=== PATIENT | male | born 1960 | race Caucasian/White ===

== ENCOUNTER 2019-07-01 17:45 | Emergency (ER) | payer OTHER ==
[~2019-07-01] VITALS: Ht 185.4 cm; Wt 99.8 kg
--- OUTSIDE RECORDS SUMMARY | ~2019-07-01 | XMS | Encounter Summary ---
Demographics + + + | Address | [address] | | | [place] [address] | + + + | Home Phone | | + + + | Preferred Language | Unknown | + + + | Marital Status | | + + + | Lutheran Affiliation | Unknown | + + + | Race | Unknown | + + + | Ethnic Group | Unknown | + + + Author + + + | Author | and [facility] | | | and [place] | + + + | Organization | and [facility] | | | and [place] | + + + | Address | Unknown | + + + | Phone | Unavailable | + + + Support + + +---------+ + | Name | Relationship | Address | Phone | + + +---------+ + | Kalli So | ECON | Unknown | | + + +---------+ + Care Team Providers + +------+ + | Care Distribution Center Administrator Name | Role | Phone | + +------+ + | Ihsan Umaña MD | PCP | | + +------+ + Reason for Visit +---------+ + | Reason | Comments | +---------+ + | Results | | +---------+ + Encounter Details +--------+ + + + + | Date | Type | Department | Care Team | Description | +--------+ + + + + | 06/06/ | Telephone | [facility] | Cesar Morelos | Results | | 2019 | | GASTROENTEROLOGY | MD Allie [address] | | | | | [address] | [address] | | | | | [place], [place] | [place] [address] | | | | | [address] | [phone] | | | | | [phone] | | | +--------+ + + + + Social History + + + +--------+ + | Tobacco Use | Types | Packs/Day | Years | Date | | | | | Used | | + + + +--------+ + | Current Every Day | Cigarettes | 1 | 23 | Started: 05/08/1996 | | Smoker | | | | | + + + +--------+ + + +---+---+---+ | Smokeless Tobacco: | | | | | Never Used | | | | + +---+---+---+ + + +---------+ + | Alcohol Use | Drinks/Week | oz/Week | Comments | + + +---------+ + | Yes | | | 30bears week + 2 | | | | | shots of liqure | | | | | nightly. | + + +---------+ + + + + | Sex Assigned at | Date Recorded | | | | + + + | Not on file | | + + + + + + + | Job Start Date | Occupation | Industry | + + + + | Not on file | Not on file | Not on file | + + + + + + + + | Travel History | Travel Start | Travel End | + + + + + + | No recent travel history available. | + + documented as of this encounter Plan of Treatment Not on filedocumented as of this encounter Visit Diagnoses Not on filedocumented in this encounter"
--- OUTSIDE RECORDS SUMMARY | ~2019-07-01 | XMS | Encounter Summary ---
Demographics + + + | Address | [address] | | | [place] [address] | + + + | Home Phone | | + + + | Preferred Language | Unknown | + + + | Marital Status | | + + + | Restorationist Affiliation | Unknown | + + + | Race | Unknown | + + + | Ethnic Group | Unknown | + + + Author + + + | Author | [facility] | | | and [place] | + + + | Organization | [facility] | | | and [place] | [...] Team Providers + +------+ + | Care Prepared Foods Service Team Member Name | Role | Phone | + +------+ + | Ihsan Umaña MD | PCP | | + +------+ + Reason for Visit + + + | Reason | Comments | + + + | Musculoskeletal Pain | | + + + Encounter Details +--------+ + + + + | Date | Type | Department | Care Team | Description | +--------+ + + + + | 05/26/ | Telephone | [facility] | Gladis Melo | Musculoskeletal Pain | | 2019 | | [address]SIATRY [address] | ARYA [address] | | | | | [place], | [employer] [facility] | | | | | [place] [address] | [address] [place], [place] | | | | | [phone] | [address] | | | | | | | | +--------+ + + + [...]
--- OUTSIDE RECORDS SUMMARY | ~2019-07-01 | XMS | Encounter Summary ---
Demographics + + + | Address | [address] | | | [place] [address] | + + + | Home Phone | | + + + | Preferred Language | Unknown | + + + | Marital Status | | + + + | Pentecostalism Affiliation | Unknown | + + + | Race | Unknown | + + + | Ethnic Group | Unknown | + + + Author + + + | Author | [facility] | | | and [place] | + + + | Organization | [facility] | | | and [place] [...] Team Providers + +------+ + | Care Tax Professional Name | Role | Phone | + +------+ + | Ihsan Umaña MD | PCP | | + +------+ + Reason for Visit +--------+ + | Reason | Comments | +--------+ + | Other | | +--------+ + Encounter Details +--------+ + + + + | Date | Type | Department | Care Team | Description | +--------+ + + + + | 05/19/ | Telephone | [facility] | Gladis Melo | Other | | 2019 | | [address]ATRY [address] | ARYA [address] | | | | | [place], | [place] [facility] | | | | | [place] [address] | [address], [place] | | | | | [phone] | [address] | | | | | | | [...] +---------+ + | Yes | | | Fairly Heavy | + + +---------+ + + + [...]
--- OUTSIDE RECORDS SUMMARY | ~2019-07-01 | XMS | Encounter Summary ---
Demographics + + + | Address | [address] | | | [place] [address] | + + + | Home Phone | | + + + | Preferred Language | Unknown | + + + | Marital Status | | + + + | Anglican Affiliation | Unknown | + + + | Race | Unknown | + + + | Ethnic Group | Unknown | + + + Author + + + | Author | [facility] | | | and [place] | + + + | Organization | [facility] | | | and [place] [...] Team Providers + +------+ + | Care Stock Preparer Name | Role | Phone | + +------+ + | Ihsan Umaña MD | PCP | | + +------+ + Encounter Details +--------+ + + + + | Date | Type | Department | Care Team | Description | +--------+ + + + + | 06/30/ | Imaging | [facility] | Provider, | | | 2019 | Exam | [facility] | MD [address] | | | | | IMAGING | [address] | | | | | [phone] | [place] [address] | | +--------+ + + + + [...] Not on filedocumented as of this encounter Procedures + +--------+ + + + | Procedure Name | Priori | Date/Time | Associated Diagnosis | Comments | | | ty | | | | + +--------+ + + + | MRI LUMBAR SPINE WO | Routin | 06/20/2019 | | Results for this | | CONTRAST | e | 12:00 AM | | procedure are in the | | | | PST | | results section. | + +--------+ + + + documented in this encounter Results MRI Lumbar Spine wo Contrast (06/20/2019 12:00 AM PST) + + | Specimen | + + | | + + + + + | Narrative | Performed At | + + + | External films for comparison only | [facility] | | | | | No results will be in the chart. | | + + + + +---------+ + + | Performing | Address | City/State/Zipcode | Phone Number | | Organization | | | | + +---------+ + + | [facility] | | | | + +---------+ + + documented in this encounter Visit Diagnoses Not on filedocumented in this encounter"
--- OUTSIDE RECORDS SUMMARY | ~2019-07-01 | XMS | Encounter Summary ---
Demographics + + + | Address | [address] | | | [place] [address] | + + + | Home Phone | | + + + | Preferred Language | Unknown | + + + | Marital Status | | + + + | Zoroastrian Affiliation | Unknown | + + + | Race | Unknown | + + + | Ethnic Group | Unknown | + + + Author + + + | Author | [facility] | | | and [place] | + + + | Organization | [facility] | | | and [place] | [...] Team Providers + +------+ + | Care Disc Pad Plate Filler Name | Role | Phone | + +------+ + | Ihsan Umaña MD | PCP | | + +------+ + Reason for Visit +--------+ + | Reason | Comments | +--------+ + | Other | pre-procedure call | +--------+ + Encounter Details +--------+ + + + + | Date | Type | Department | Care Team | Description | +--------+ + + + + | 05/28/ | Telephone | [facility] | Cesar Morelos | Other (pre-procedure | | 2019 | | GASTROENTEROLOGY | MD Bernadette Kelley | call ) | | | | [address] | [address] | | | | | [place], [place] | [place] [address] | | | | | [address] | [phone] | | | | | [phone] | | | +--------+ + + + [...]
--- OUTSIDE RECORDS SUMMARY | ~2019-07-01 | XMS | Encounter Summary ---
Demographics + + + | Address | [address] | | | [place] [address] | + + + | Home Phone | | + + + | Preferred Language | Unknown | + + + | Marital Status | | + + + | Buddhist Affiliation | Unknown | + + + | Race | Unknown | + + + | Ethnic Group | Unknown | + + + Author + + + | Author | [facility] | | | and [place] | + + + | Organization | [facility] | | | and [place] [...] Team Providers + +------+ + | Care Underwriting Consultant Name | Role | Phone | + +------+ + | Ihsan Umaña MD | PCP | | + +------+ + Reason for Visit Auth/Cert +--------+--------+ + + + + | Status | Reason | Specialty | Diagnoses / | Referred By | Referred To | | | | | Procedures | Contact | Contact | +--------+--------+ + + + + | | | | | | | +--------+--------+ + + + + Encounter Details +--------+ + + + + | Date | Type | Department | Care Team | Description | +--------+ + + + + | 05/26/ | Preadmit | [facility] | Cesar Morelos | | | 2019 | Visit | [facility] | MD [address] | | | | | CLINIC [address] | [address] | | | | | [place], [place] | [place] [address] | | | | | [address] | [phone] | | | | | [phone] | | | +--------+ + + + [...] | | | + +---+---+---+ + + | Tobacco Cessation: Counseling Given: Yes | + + + + +---------+ + | Alcohol Use [...] + + documented as of this encounter Last Filed Vital Signs + + + + + | Vital Sign | Reading | Time Taken | Comments | + + + + + | Blood Pressure | 180/88 | 05/26/2019 12:02 PM | | | | | PDT | | + + + + + | Pulse | 93 | 05/26/2019 12:02 PM | | | | | PDT | | + + + + + | Temperature | - | - | | + + + + + | Respiratory Rate | - | - | | + + + + + | Oxygen Saturation | 98% | 05/26/2019 12:02 PM | | | | | PDT | | + + + + + | Inhaled Oxygen | - | - | | | Concentration | | | | + + + + + | Weight | 102 kg (224 lb 13.9 | 05/26/2019 12:02 PM | | | | oz) | PDT | | + + + + + | Height | 185.4 cm (6' 1") | 05/26/2019 12:02 PM | | | | | PDT | | + + + + + | Body Mass Index | 29.67 | 05/26/2019 12:02 PM | | | | | PDT | | + + + + + documented in this encounter Plan of Treatment Not on filedocumented as of this encounter Procedures + +--------+ + + + | Procedure Name | Priori | Date/Time | Associated Diagnosis | Comments | | | ty | | | | + +--------+ + + + | HEMOGLOBIN AND | Timed | 05/26/2019 | | Results for this | | HEMATOCRIT | | 12:28 PM | | procedure are in the | | | | PDT | | results section. | + +--------+ + + + | BASIC METABOLIC | Timed | 05/26/2019 | | Results for this | | PANEL | | 12:28 PM | | procedure are in the | | | | PDT | | results section. | + +--------+ + + + documented in this encounter Results Basic Metabolic Panel (05/26/2019 12:28 PM PDT) + + + + + + | Component | Value | Ref Range | Performed | Pathologist | | | | | At | Signature | + + + + + + | Na | 139 | 135 - 145 | [facility] | | | | | mmol/L | LABORATORY | | + + + + + + | K | 4.4 | 3.5 - 4.9 | [facility] | | | | | mmol/L | LABORATORY | | + + + + + + | Cl | 106 | 99 - 109 mmol/L | [facility] | | | | | | LABORATORY | | + + + + + + | CO2 | 29 | 23 - 32 mmol/L | [facility] | | | | | | LABORATORY | | + + + + + + | Anion Gap | 8 | 5 - 20 mmol/L | [facility] | | | | | | LABORATORY | | + + + + + + | Glucose | 61 (L) | 65 - 99 mg/dL | [facility] | | | | | | LABORATORY | | + + + + + + | BUN | 21 | 8 - 25 mg/dL | [facility] | | | | | | LABORATORY | | + + + + + + | Creatinine | 1.6 (H) | 0.70 - 1.30 | [facility] | | | | | mg/dL | LABORATORY | | + + + + + + | BUN/Creatin | 13 | | [facility] | | | ine Ratio | | | LABORATORY | | + + + + + + | Calcium | 9.4 | 8.5 - 10.5 | [facility] | | | | | mg/dL | LABORATORY | | + + + + + + | Estimated | 45 (L)Comment: GFR <60: | >60 | [facility] | | | GFR | CHRONIC KIDNEY DISEASE, | mL/min/1.73m2 | LABORATORY | | | | IF FOUND OVER A 3 MONTH | | | | | | PERIOD.GFR <15: KIDNEY | | | | | | FAILURE.FOR | | | | | | AMERICANS, MULTIPLY THE | | | | | | CALCULATED GFR BY | | | | | | 1.210.This eGFR is | | | | | | calculated using the | | | | | | MDRD IDMS traceable | | | | | | equation.Testing | | | | | | performed at [facility], [address] | | | | | | [address], | | | | | | [place] [address] | | | | + + + + + + + + | Specimen | + + | Blood | + + + + + + + | Performing | Address | City/State/Zipcode | Phone Number | | Organization | | | | + + + + + | [facility] | [address] | [place] [address] | [phone] | + + + + + Hemoglobin and Hematocrit (05/26/2019 12:28 PM PDT) + + + + + + | Component | Value | Ref Range | Performed | Pathologist | | | | | At | Signature | + + + + + + | Hemoglobin | 15.9 | 13.2 - 17.0 | [facility] | | | | | g/dL | LABORATORY | | + + + + + + | Hematocrit | 44.5Comment: Testing | 39.0 - 50.0 % | [facility] | | | | performed at [facility], [address] | | LABORATORY | | | | [address], | | | | | | [place] [address] | | | | + + + + + + + + | Specimen | + + | Blood | + + + + + + + | Performing | Address | City/State/Zipcode | Phone Number | | Organization | | | | + + + + + | [facility] | [address] | [place] [address] | [phone] | + + + + + documented in this encounter Visit Diagnoses Not on filedocumented in this encounter
--- OUTSIDE RECORDS SUMMARY | ~2019-07-01 | XMS | Clinical Summary ---
Demographics + + + | Address | [address] | | | [place] [address] | + + + | Home Phone | | + + + | Preferred Language | Unknown | + + + | Marital Status | | + + + | Oriental Orthodox Affiliation | Unknown | + + + | Race | Unknown | + + + | Ethnic Group | Unknown | + + + Author + + + | Author | [facility] | | | and [place] | + + + | Organization | [facility] | | | and [place] [...] Team Providers + +------+ + | Care Precision Assembler Bench Name | Role | Phone | + +------+ + | Ihsan Umaña MD | PCP | | + +------+ + Allergies No Known Allergies Medications + + + +---------+------+------+-------+ | Medication | Sig | Dispensed | Refills | Star | End | Statu | | | | | | t | Date | s | | | | | | Date | | | + + + +---------+------+------+-------+ | cetirizine | Take 10 mg by mouth | | 0 | 03/2 | 03/2 | Activ | | (ZYRTEC) 10 mg | Daily as needed for | | | 01/16 | 20 | e | | tablet | Allergies. | | | 19 | 20 | | + + + +---------+------+------+-------+ | cholecalciferol | Take 1 tablet by | | 0 | 03/2 | 03/2 | Activ | | (VITAMIN D-3) 2,000 | mouth Daily. | | | 01/16 | 01/16 | e | | units capsule | | | | 19 | 20 | | + + + +---------+------+------+-------+ | DULoxetine | Take 1 capsule by | | 0 | 03/2 | 03/2 | Activ | | (CYMBALTA) [address] | mouth Daily. | | | 01/16 | 01/16 | e | | capsule | | | | 19 | 20 | | + + + +---------+------+------+-------+ | gabapentin | Take 300 mg by mouth | | 0 | 10/28 | 10/28 | Activ | | (NEURONTIN) 300 mg | 3 times daily. | | | 12/16 | 12/16 | e | | capsule | | | | 19 | 20 | | + + + +---------+------+------+-------+ | ACIDOPHILUS | Take 1 capsule by | | 0 | 06/2 | 06/2 | Activ | | LACTOBACILLUS PO | mouth 4 times daily | | | 0/20 | 0/20 | e | | | (with meals and | | | 19 | 20 | | | | nightly). | | | | | | + + + +---------+------+------+-------+ | loperamide | Take 1 capsule by | | 0 | 06/2 | 06/2 | Activ | | (IMODIUM) 2 mg | mouth as needed for | | | 0/20 | 0/20 | e | | capsule | Diarrhea. Take after | | | 19 | 20 | | | | each loose stool. | | | | | | | | No more than 8 | | | | | | | | capsules daily. | | | | | | + + + +---------+------+------+-------+ | mupirocin | 1 Application by | | 0 | 01/0 | 01/0 | Activ | | (BACTROBAN) 2% | Nasal route 3 times | | | 8/20 | 9/20 | e | | ointment | daily as needed. In | | | 19 | 20 | | | | left nostril for | | | | | | | | infection | | | | | | + + + +---------+------+------+-------+ | omeprazole | Take 20 mg by mouth | | 0 | 09/0 | 0 | Activ | | (PRILOSEC) 20 mg | every morning | | | 04/18 | 04/18 | e | | capsule | (before breakfast). | | | 19 | 20 | | + + + +---------+------+------+-------+ Active Problems + + + | Problem | Noted Date | + + + | Alcoholism | 05/09/2019 | + + + | Anxiety | 05/09/2019 | + + + | Clear cell carcinoma of left kidney | 05/09/2019 | + + + | Clostridium difficile colitis | 05/09/2019 | + + + | Complex posttraumatic stress disorder | 05/09/2019 | + + + | Depressive disorder | 05/09/2019 | + + + | H/O: attempted suicide | 05/09/2019 | + + + | Ingrowing toenail | 05/09/2019 | + + + | Insomnia | 05/09/2019 | + + + | Pain in right knee | 05/09/2019 | + + + | Radiculopathy due to lumbar intervertebral disc disorder | 05/09/2019 | + + + | Suicidal thoughts | 05/09/2019 | + + + | Tobacco user | 05/09/2019 | + + + | History of Clostridium difficile infection | 04/07/2019 | + + + + + | Overview: Added automatically from request for surgery | | [id number] | + + + + + | Change in consistency of stool | 04/07/2019 | + + + + + | Overview: Added automatically from request for surgery | | [id number] | + + + + + | Gastroesophageal reflux disease, esophagitis presence not | 04/07/2019 | | specified | | + + + + + | Overview: Added automatically from request for surgery | | [id number] | + + + + + | Positive occult stool blood test | 04/07/2019 | + + + + + | Overview: Added automatically from request for surgery | | [id number] | + + + + + | Heartburn | 04/07/2019 | + + + + + | Overview: Added automatically from request for surgery | | [id number] | + + + + + | Weight loss | 04/07/2019 | + + + + + | Overview: Added automatically from request for surgery | | [id number] | + + + + + | Left lower quadrant pain | 12/02/2018 | + + + | BPH with obstruction/lower urinary tract symptoms | 08/19/2018 | + + + | Nocturia | 08/19/2018 | + + + | Renal cancer, left | 08/19/2018 | + + + | Renal mass, left | 08/07/2018 | + + + | Night sweats | 07/18/2018 | + + + + + | Overview: Last Assessment & Plan: Denies fever, fatigue, | | weight loss, itching, or shortness of breath. +smoker. CXR on | | 07/08/18 done at the [place] was negative. Possibly SE of his | | antidepressant medication, duloxetine 60mg. Labs ordered for | | further evaluation. If labs wnl, consider discussing medication | | options with mental health provider. | + + + + + | Nasal mass | 07/11/2018 | + + + | Lumbar spondylolysis | 06/18/2018 | + + + | Facet arthritis of lumbar region | 05/21/2018 | + + + | Sacroiliitis | 05/21/2018 | + + + | Hypercholesteremia | 02/28/2018 | + + + | Hypertension | 02/28/2018 | + + + | Open displaced fracture of right great toe | 02/28/2018 | + + + | Other intervertebral disc displacement, lumbar region | 02/28/2018 | + + + | Pain of right great toe | 02/28/2018 | + + + | NATIVIDAD (obstructive sleep apnea) | 05/30/2017 | + + + | Post-operative complication | 2016 | + + + | Lumbago with sciatica | 03/25/2013 | + + + Encounters +--------+ + + + + | Date | Type | Specialty | Care Team | Description | +--------+ + + + + | 06/30/ | Imaging | Radiology | Provider, | | | 2019 | Exam | | MD Rozina | | +--------+ + + + + | 06/25/ | Telephone | Physical Medicine | Gladis Melo | Imaging | | 2018 | | and Rehabilitation | ARYA Olivares | | +--------+ + + + + | 06/06/ | Telephone | Gastroenterology | Cesar Morelos | Results | 2018 | | | MD Allie | | +--------+ + + + + | 06/02/ | Surgery | | Cesar Morelos | COLONOSCOPY W/ EGD | 2018 | | | MD Allie | | +--------+ + + + + | 06/02/ | Anesthesia | | Carrie Saldana, | | | 2018 | Event | | FLAKITA Beal | | +--------+ + + + + | 06/02/ | Hospital | | Cesar Morelos | History of | | 2018 | Encounter | | MD Allie | Clostridium | | | | | | difficile infection; | | | | | | Change in | | | | | | consistency of | | | | | | stool; | | | | | | Gastroesophageal | | | | | | reflux disease, | | | | | | esophagitis presence | | | | | | not specified; | | | | | | Positive occult | | | | | | stool blood test; | | | | | | Heartburn; Weight | | | | | | loss; History of | | | | | | Clostridium | | | | | | difficile infection; | | | | | | Change in | | | | | | consistency of | | | | | | stool; | | | | | | Gastroesophageal | | | | | | reflux disease, | | | | | | esophagitis presence | | | | | | not specified; | | | | | | Positive occult | | | | | | stool blood test; | | | | | | Heartburn; Weight | | | | | | loss | +--------+ + + + + | 05/28/ | Telephone | Gastroenterology | eCsar Morelos | Other (pre-procedure | | 2018 | | | MD Allie | call ) | +--------+ + + + + | 05/27/ | Telephone | Physical Medicine | Gladis Melo | Records Request | | 2018 | | and Rehabilitation | ARYA Olivares | | +--------+ + + + + | 05/26/ | Preadmit | Pre-Admission | Cesar Morelos | | | 2018 | Visit | Testing | MD Allie | | +--------+ + + + + | 05/26/ | Telephone | Physical Medicine | Gladis Melo | Musculoskeletal Pain | | 2018 | | and Rehabilitation | ARYA Olivares | | +--------+ + + + + | 05/19/ | Telephone | Physical Medicine | Gladis Melo | Other | | 2018 | | and Rehabilitation | ARYA Olivares | | +--------+ + + + + | 05/09/ | Office | Physical Medicine | Gladis Melo | Lumbar spondylosis | | 2018 | Visit | and Rehabilitation | ARYA Olivares | (Primary Dx); | | | | | | History of lumbar | | | | | | discectomy; Chronic | | | | | | bilateral low back | | | | | | pain, unspecified | | | | | | whether sciatica | | | | | | present; | | | | | | Spondylolisthesis at | | | | | | L5-S1 level | +--------+ + + + + | 05/08/ | Abstract | Physical Medicine | Provider, | | | 2019 | | and Rehabilitation | MD Rozina | | +--------+ + + + + | 04/15/ | Telephone | Gastroenterology | Christie Red | Results (Lab work ) | | 2019 | | | Transfer Driver | | +--------+ + + + + | 04/08/ | Orders Only | | Yaima Sotelo | Change in | | 2019 | | | Y Debt Recovery Officer | consistency of | | | | | | stool; Heartburn; | | | | | | Gastroesophageal | | | | | | reflux disease, | | | | | | esophagitis presence | | | | | | not specified; | | | | | | History of | | | | | | Clostridium | | | | | | difficile infection | +--------+ + + + + | 04/07/ | Office | Gastroenterology | Jacqueline | History of | | 2019 | Visit | | KANE Wheeler | Clostridium | | | | | | difficile infection | | | | | | (Primary Dx); Change | | | | | | in consistency of | | | | | | stool; Weight loss; | | | | | | Heartburn; | | | | | | Gastroesophageal | | | | | | reflux disease, | | | | | | esophagitis presence | | | | | | not specified; | | | | | | Positive occult | | | | | | stool blood test | +--------+ + + + + | 04/07/ | Orders Only | | Gretchen Montano | Change in | | 2018 | | | Mike Debt Recovery Officer | consistency of stool | +--------+ + + + + from Last 3 Months Immunizations + + + + | Name | Administration Dates | Next Due | + + + + | INFLUENZA QUADR | 05/21/2019 | | | W/PRES | | | | (PED/ADOL/ADULT) | | | | MULTIDOSE | | | + + + + | INFLUENZA TRIV | 05/13/2018 | | | W/PRES(PED/ADOL/ADUL | | | | T),MULTIDOSE | | | + + + + | PNEUMOCOCCAL | 11/11/2018 | | | POLYSACCHARIDE | | | | 23-VALENT (PPSV23) | | | + + + + | TDAP, (ADOL/ADULT) | 04/29/2017 | | + + + + Family History + + +------+ + | Medical History | Relation | Name | Comments | + + +------+ + | Heart disease | Brother | | | + + +------+ + | Kidney cancer | Brother | | | + + +------+ + | Depression | Brother | | | + + +------+ + | Mental illness | Brother | | | + + +------+ + | Suicide | Brother | | | + + +------+ + | Alcohol abuse | Father | | | + + +------+ + | Arthritis | Father | | | + + +------+ + | Cancer | Father | | | + + +------+ + | Heart attack | Father | | | + + +------+ + | Hypertension | Father | | | + + +------+ + | Stroke | Father | | | + + +------+ + | Arthritis | Mother | | | + + +------+ + | Asthma | Mother | | | + + +------+ + | Heart disease | Mother | | | + + +------+ + | High blood pressure | Mother | | | + + +------+ + | Hypertension | Mother | | | + + +------+ + | Osteoarthritis | Mother | | | + + +------+ + | Parkinsonism | Mother | | | + + +------+ + | Lupus | Other | | | + + +------+ + | No known problems | Other | | | + + +------+ + | No known problems | Sister | | | + + +------+ + | Colon cancer | Neg Hx | | | + + +------+ + | Colon polyps | Neg Hx | | | + + +------+ + | Crohn's disease | Neg Hx | | | + + +------+ + + +------+ + + | Relation | Name | Status | Comments | + +------+ + + | Brother | | Alive | | + +------+ + + | Brother | | | | + +------+ + + | Father | | | Cancer | | | | (Age | | | | | 62) | | + +------+ + + | Mother | | | | | | | (Age | | | | | 89) | | + +------+ + + | Other | | Alive | sibling | + +------+ + + | Other | | Alive | Sibling | + +------+ + + | Sister | | Alive | | + +------+ + + Social History + + + [...] recent travel history available. | + + Last Filed Vital Signs + + + + + | Vital Sign | Reading | Time Taken | Comments | + + + + + | Blood Pressure | 103/67 | 06/02/2019 8:14 AM | | | | | PST | | + + + + + | Pulse | 74 | 06/02/2019 8:14 AM | | | | | PST | | + + + + + | Temperature | 36.5 C (97.7 F) | 06/02/2019 8:14 AM | | | | | PST | | + + + + + | Respiratory Rate | 16 | 06/02/2019 8:14 AM | | | | | PST | | + + + + + | Oxygen Saturation | 100% | 06/02/2019 8:14 AM | | | | | PST | | + + + + + | Inhaled Oxygen | - | - | | | Concentration | | | | + + + + + | Weight | 101 kg (222 lb 10.6 | 06/02/2019 7:01 AM | | | | oz) | PST | | + + + + + | Height | 185.4 cm (6' 1") | 06/02/2019 7:01 AM | | | | | PST | | + + + + + | Body Mass Index | 29.38 | 06/02/2019 7:01 AM | | | | | PST | | + + + + + Plan of Treatment + + + + + | Health Maintenance | Due Date | Last Done | Comments | + + + + + | Hepatitis C | | | | | Screening | 3 | | | + + + + + | Vaccine: Zoster (1 | | | | | of 2) | 3 | | | + + + + + | Vaccine: | | 11/11/2018 | | | Pneumococcal 19-64 | 0 | | | | (2 of 3 - PCV13) | | | | + + + + + | Vaccine: | | 04/29/2017 | | | Dtap/Tdap/Td (2 - | 7 | | | | Td) | | | | + + + + + | Colorectal Cancer | | 06/02/2019 | | | Screening | 9 | | | | (Colonoscopy) | | | | + + + + + | Vaccine: Influenza | Completed | 05/21/2019, 05/13/2018 | | + + + + + Procedures + +--------+ + + + | [...] | + +--------+ + + + | COLONOSCOPY | Routin | 06/02/2019 | | Results for this | | | e | 7:41 AM | | procedure are in the | | | | PST | | results section. | + +--------+ + + + | SURGICAL PATHOLOGY | Routin | 06/02/2019 | History of | Results for this | | EXAM | e | 7:36 AM | Clostridium | procedure are in the | | | | PST | difficile infection | results section. | | | | | Change in | | | | | | consistency of stool | | | | | | Gastroesophageal | | | | | | reflux disease, | | | | | | esophagitis presence | | | | | | not specified | | | | | | Positive occult | | | | | | stool blood test | | | | | | Heartburn Weight | | | | | | loss | | + +--------+ + + + | EGD | Routin | 06/02/2019 | | Results for this | | | e | 7:27 AM | | procedure are in the | | | | PST | | results section. | + +--------+ + + + | COLONOSCOPY W/ EGD | | 06/02/2019 | History of | | | | | 7:20 AM | Clostridium | | | | | PST | difficile infection | | | | | | Change in | | | | | | consistency of stool | | | | | | Gastroesophageal | | | | | | reflux disease, | | | | | | esophagitis presence | | | | | | not specified | | | | | | Positive occult | | | | | | stool blood test | | | | | | Heartburn Weight | | | | | | loss | | + +--------+ + + + +---+--------+ | | | | | Specia | | | l | | | Needs | | | with | | | Anesth | | | sohail | +---+--------+ + +--------+ + + + | BASIC [...] | + +--------+ + + + | FECAL LEUKOCYTES | CARLOS | 04/08/2019 | Change in | Results for this | | | | 7:25 AM | consistency of stool | procedure are in the | | | | PDT | | results section. | + +--------+ + + + | CLOSTRIDIUM | Routin | 04/08/2019 | History of | Results for this | | DIFFICILE A AND B | e | 7:25 AM | Clostridium | procedure are in the | | EIA | | PDT | difficile infection | results section. | + +--------+ + + + | HELICOBACTER PYLORI | Routin | 04/08/2019 | Heartburn | Results for this | | AG, EIA, STOOL | e | 7:25 AM | Gastroesophageal | procedure are in the | | | | PDT | reflux disease, | results section. | | | | | esophagitis presence | | | | | | not specified | | + +--------+ + + + | CULTURE, STOOL | Routin | 04/08/2019 | Change in | Results for this | | | e | 7:25 AM | consistency of stool | procedure are in the | | | | PDT | | results section. | + +--------+ + + + | CBC WITH MANUAL | Routin | 04/07/2019 | Change in | Results for this | | DIFFERENTIAL | e | 10:01 AM | consistency of stool | procedure are in the | | | | PDT | | results section. | + +--------+ + + + | COMPREHENSIVE | Routin | 04/07/2019 | Change in | Results for this | | METABOLIC PANEL | e | 10:01 AM | consistency of stool | procedure are in the | | | | PDT | | results section. | + +--------+ + + + | SEDIMENTATION RATE | Routin | 04/07/2019 | Change in | Results for this | | | e | 10:01 AM | consistency of stool | procedure are in the | | | | PDT | | results section. | + +--------+ + + + | CELIAC PANEL, | Routin | 04/07/2019 | Change in | Results for this | | SEROLOGY | e | 10:01 AM | consistency of stool | procedure are in the | | | | PDT | | results section. | + +--------+ + + + | C-REACTIVE PROTEIN | Routin | 04/07/2019 | Change in | Results for this | | | e | 10:01 AM | consistency of stool | procedure are in the | | | | PDT | | results section. | + +--------+ + + + from Last 3 Months Results MRI Lumbar Spine wo Contrast (06/20/2019 [...] | | | + +---------+ + + COLONOSCOPY (06/02/2019 7:41 AM PST) + + | Specimen | + + | | + + + + + | Narrative | Performed At | + + + | [facility] | [place] | | [facility] | [place] | | CenterGI | | | Patient Name: Antonio Simpson Procedure | | | Date: 06/02/2019 7:41 AMMRN: [id number] | | | of : 1960 | | | Note Status: FinalizedAttending MD: Cesar Morelos , | | | Instrument Name: [id number] | | | Colonoscope | | | Procedure Type: ColonoscopyIndications: | | | Heme positive stool, Weight lossMedicines: | | | Monitored Anesthesia CareComplications: No immediate | | | complications. | | | Procedure: Pre-Anesthesia Assessment: | | | - Prior to the procedure, a History and Physical was performed, and | | | patient medications and allergies were reviewed. The patient's | | | tolerance of previous anesthesia was also reviewed. The risks | | | and benefits of the procedure and the sedation options and | | | risks were discussed with the patient. All questions were | | | answered, and informed consent was obtained. Prior | | | Anticoagulants: The patient has taken no previous anticoagulant or | | | antiplatelet agents. ASA Grade Assessment: III - A patient with | | | severe systemic disease. After reviewing the risks and | | | benefits, the patient was deemed in satisfactory condition to | | | undergo the procedure. After I obtained informed consent, the | | | scope was passed under direct vision. Throughout the procedure, | | | the patient's blood pressure, pulse, and oxygen saturations | | | were monitored continuously. The Colonoscope was introduced | | | through the anus and advanced to 10 cm into the ileum. The | | | colonoscopy was performed without difficulty. The patient tolerated | | | the procedure well. The quality of the bowel preparation was | | | good. The terminal ileum, ileocecal valve, appendiceal orifice, | | | and rectum were photographed. | | | | | | Estimated Blood Loss: Estimated blood loss: none.Scope | | | Withdrawal Time 0 hours 9 minutes 49 seconds Findings: The | | | digital rectal exam was normal. The terminal ileum appeared | | | normal. A few small-mouthed diverticula were found in the | | | sigmoid colon. Internal hemorrhoids were found. The hemorrhoids | | | were small. The exam was otherwise without abnormality on direct | | | and retroflexion views. | | | | | | Impression: - The examined portion of the ileum was | | | normal. - Diverticulosis in the sigmoid colon. - Internal | | | hemorrhoids. - The examination was otherwise normal on direct | | | and retroflexion views. - No specimens collected. | | | | | | Recommendation: - Patient has a | | | contact number available for emergencies. The signs and | | | symptoms of potential delayed complications were discussed with the | | | patient. Return to normal activities tomorrow. Written discharge | | | instructions were provided to the patient. - Resume | | | previous diet. - Continue present medications. - Repeat | | | colonoscopy in 10 years for screening purposes. - Return to GI | | | clinic. | | | | | | Kaylynsalbador Allie Morelos, 06/02/2019 7:59:50 AMThis | | | report has been signed electronically. Note Initiated On: 06/02/2019 | | | 7:41 AMNumber of Addenda: 0 [facility] | | | Endoscopy Services | | | | | | | | | | | |Cesar Morelos, | | |06/02/2019 7:59:50 AM | | |This report has been signed electronically. | | | | | |Note Initiated On: 06/02/2019 7:41 AM | | |Number of Addenda: 0 | | | | | | [facility] | | + + + + +---------+ + + | Performing | Address | City/State/Zipcode | Phone Number | | Organization | | | | + +---------+ + + | [facility] | | | | + +---------+ + + Surgical Pathology Exam (06/02/2019 7:36 AM PST) + + | Specimen | + + | Tissue - Duodenal | | biopsy sample | | (specimen) | + + | Soft tissue sample | | (specimen) - | | Specimen from | | stomach (specimen) | + + + + + | Narrative | Performed At | + + + | SPECIMEN(S): A | [facility] | | DUODENAL BIOPSYSPECIMEN(S): B GASTRIC BIOPSY SPECIMEN SOURCE:A. | [facility] | | DUODENAL BIOPSYB. GASTRIC BIOPSY CLINICAL HISTORY:Z86.19 (history of | | | Clostridium difficile infection), R19.5 (change in consistency of | | | stool), K21.9 (gastroesophageal reflux disease, esophagitis presence | | | not specified), R19.5 (positive occult stoolblood test), R12 | | | (heartburn), R63.4 (weight loss). MICROSCOPIC DESCRIPTION:Histologic | | | sections of all submitted blocks are examined by light microscopy. | | | These findings, together with the gross examination, support the | | | pathologic diagnosis. FINAL PATHOLOGIC DIAGNOSIS:A. Duodenum, | | | biopsies:- Mild chronic duodenitis, negative for active inflammation | | | or significant villous blunting. B. Stomach, biopsies:- Benign | | | gastric mucosa with focal vascular congestion, negative for active | | | inflammation.- No Helicobacter pylori bacteria are detected by HE | | | stain. AMB:emb:C2NR GROSS DESCRIPTION:A. The specimen is received in a | | | formalin filled specimen container labeled "DL, random duodenum | | | biopsy". Two pink biopsies are each 0.3 cm and entirely submitted in | | | cassette A1. B. The specimen is received in a formalin filled | | | specimen container labeled "DL, gastric biopsy". Two walter biopsies | | | are 0.4 and 0.5 cm and entirely submitted in cassette B1.GW (under the | | | direct supervision of a pathologist) The Gross Description was | | | prepared using a voice recognition system. The report was reviewed | | | for accuracy; however, sound-alike word errors, addition and/or | | | deletions may occur. If there is anyquestion about this report, | | | please contact Client Services. PERFORMING LABORATORY:The technical | | | component was performed by [facility], [address] [place] [address], | | | [place] [address] ([employer]: Taya Levine MD; CLIA# | | | [id number]). Professional interpretation was performed by[facility] | | | [address], | | | [place] [address] ([employer]: Bayron Lewis M.D.; CLIA#: | | | [id number]). Diagnostician: Taya Levine | | | MDPathologistElectronically Signed 06/03/2019 | | | | | |PERFORMING LABORATORY: | | |The technical component was performed by [facility], [address] [place] [address] ([employer]: Taya Levine MD; CLIA# [id number]). Professional interpretation was performed by | | |[facility], [address] [address] ([employer]: Bayron Lewis M.D.; CLIA#: [id number]). | | | | | |Diagnostician: Taya Levine MD | | |Pathologist | | |Electronically Signed 06/03/2019 | | | | | | | | + + + + +---------+ + + | Performing | Address | City/State/Zipcode | Phone Number | | Organization | | | | + +---------+ + + | [facility] | | | | | [facility] | | | | + +---------+ + + EGD (06/02/2019 7:27 AM PST) + + | Specimen | + + | | + + + + + | Narrative | Performed At | + + + | [facility] | [place] | | [facility] | [place] | | CenterGI | | | Patient Name: Antonio Simpson Procedure | | | Date: 06/02/2019 7:27 AMMRN: [id number] | | | of : 1960 | | | Note Status: FinalizedAttending MD: Cesar Morelos , | | | Instrument Name: [id number] | | | Gastroscope | | | Procedure Type: Upper GI | | | endoscopyIndications: Heartburn, Gastro-esophageal | | | reflux disease, Weight lossMedicines: Monitored | | | Anesthesia CareComplications: No immediate | | | complications. | | | Procedure: Pre-Anesthesia Assessment: | | | - Prior to the procedure, a History and Physical was performed, and | | | patient medications and allergies were reviewed. The patient's | | | tolerance of previous anesthesia was also reviewed. The risks | | | and benefits of the procedure and the sedation options and | | | risks were discussed with the patient. All questions were | | | answered, and informed consent was obtained. Prior | | | Anticoagulants: The patient has taken no previous anticoagulant or | | | antiplatelet agents. ASA Grade Assessment: III - A patient with | | | severe systemic disease. After reviewing the risks and | | | benefits, the patient was deemed in satisfactory condition to | | | undergo the procedure. After obtaining informed consent, the | | | endoscope was passed under direct vision. Throughout the | | | procedure, the patient's blood pressure, pulse, and oxygen | | | saturations were monitored continuously. The Endoscope was | | | introduced through the mouth, and advanced to the second part of | | | duodenum. The upper GI endoscopy was accomplished without | | | difficulty. The patient tolerated the procedure well. | | | | | | Estimated Blood Loss: Estimated | | | blood loss was minimal.Findings: The esophagus was normal. | | | The entire examined stomach was normal. Biopsies were taken with a | | | cold forceps for histology. The examined duodenum was | | | normal. Biopsies were taken with a cold forceps for histology. | | | | | | Impression: - | | | Normal esophagus. - Normal stomach. Biopsied. - Normal | | | examined duodenum. Biopsied. | | | | | | Recommendation: - Continue present medications. - | | | Await pathology results. - Proceed with colonoscopy | | | | | | Cesar Kelley | | | Tamy 06/02/2019 7:39:32 AMThis report has been signed | | | electronically. Note Initiated On: 06/02/2019 7:27 AMNumber of Addenda: | | | 0 [facility] | | | | | | | | |Cesar Morelos, | | |06/02/2019 7:39:32 AM | | |This report has been signed electronically. | | | | | |Note Initiated On: 06/02/2019 7:27 AM | | |Number of Addenda: 0 | | | | | | [facility] | | + + + + +---------+ + + | Performing | Address | City/State/Zipcode | Phone Number | | Organization | | | | + +---------+ + + | [facility] | | | | + +---------+ + + Hemoglobin and Hematocrit (05/26/2019 12:28 [...] [facility] | | | | performed at [facility], [address] | | LABORATORY | | | | [address] [facility], | | | | | | [place] [address] | | | | + + + + + + + + | Specimen | + + | Blood | + + + + + + + | Performing | Address | City/State/Zipcode | Phone Number | | Organization | | | | + + + + + | [facility] | [address] | [place] [address] | [phone] | + + + + + Basic Metabolic Panel (05/26/2019 12:28 PM PDT) [...] 45 (L)Comment: GFR <60: | >60 | [facility] | | | GFR | CHRONIC KIDNEY [...] | | | | | | MDRD IDIA traceable | | | | | | equation.Testing | | | | | | performed at [facility], [address] | | | | | | [facility], | | | | | | [place] [address] | | | | + + + + + + + + | Specimen | + + | Blood | + + + + + + + | Performing | Address | City/State/Zipcode | Phone Number | | Organization | | | | + + + + + | [facility] | [address] | [place] [address] | [phone] | + + + + + Helicobacter pylori Ag, EIA, Stool (04/08/2019 7:25 AM PDT) + + + + + + | Component | Value | Ref Range | Performed | Pathologist | | | | | At | Signature | + + + + + + | H PYLORI AG | NegativeComment: Testing | Negative | REFERENCE | | | STL | performed at [facility], [address] | | LAB | | | | [address] [facility] | | [facility] | | | | [place] [address] | | LABORATORY | | + + + + + + + + | Specimen | + + | Stool - Stool | | specimen (specimen) | + + + + + + + | Performing | Address | City/State/Zipcode | Phone Number | | Organization | | | | + + + + + | REFERENCE LAB | [address] | [place] [address] | [phone] | | [facility] | Blvd[address] | | | | LABORATORY | | | | + + + + + | REFERENCE LAB | [address] | [place] [address] | | | [facility] | Blvd. | | | | LABORATORY | | | | + + + + + Fecal leukocytes (04/08/2019 7:25 AM PDT) + + + + + + | Component | Value | Ref Range | Performed | Pathologist | | | | | At | Signature | + + + + + + | WBC Stool | NONE SEENComment: NORMAL | | REFERENCE | | | | RANGE: NONE SEEN to | | LAB | | | | 1+Testing performed at | | [facility] | | | | TCL;[address] | | LABORATORY | | | | Blvd;[place] [address] | | | | | | | | | | + + + + + + + + | Specimen | + + | Stool - Stool | | specimen (specimen) | + + + + + + + | Performing | Address | City/State/Zipcode | Phone Number | | Organization | | | | + + + + + | REFERENCE LAB | [address] [place] [address] | [place] [address] | [phone] | | [facility] | Blvd. | | | | LABORATORY | | | | + + + + + | REFERENCE LAB | [address] [place] [address] | [place] [address] | | | [facility] | Blvd. | | | | LABORATORY | | | | + + + + + Clostridium difficile A and B EIA (04/08/2019 7:25 AM PDT) + + + + + + | Component | Value | Ref Range | Performed | Pathologist | | | | | At | Signature | + + + + + + | Clostridium | NEGATIVE | NEG | REFERENCE | | | Difficile | | | LAB | | | GDH Antigen | | | [facility] | | | | | | LABORATORY | | + + + + + + | C. Diff | NEGATIVE | NEG | REFERENCE | | | Toxin A/B | | | LAB | | | EIA | | | [facility] | | | | | | LABORATORY | | + + + + + + | C. | Negative for toxigenic | | REFERENCE | | | difficile, | C.difficile.Comment: | | LAB | | | Interp | Testing performed at | | [facility] | | | | TCL;[address] | | LABORATORY | | | | [address];[place] [address] | | | | + + + + + + + + | Specimen | + + | Stool - Stool | | specimen (specimen) | + + + + + + + | Performing | Address | City/State/Zipcode | Phone Number | | Organization | | | | + + + + + | REFERENCE LAB | [address] | [place] [address] | [phone] | | [facility] | Blvd. | | | | LABORATORY | | | | + + + + + | REFERENCE LAB | [address] | [place] [address] | | | [facility] | Blvd. | | | | LABORATORY | | | | + + + + + Culture, Stool (04/08/2019 7:25 AM PDT) + + + + + + | Component | Value | Ref Range | Performed | Pathologist | | | | | At | Signature | + + + + + + | RESULT | NEGATIVE FOR SHIGA TOXIN | | REFERENCE | | | | TYPE 1 AND 2. | | LAB | | | | | | [facility] | | | | | | LABORATORY | | + + + + + + | RESULT | NEGATIVE FOR SALMONELLA, | | REFERENCE | | | | SHIGELLA AND | | LAB | | | | CAMPYLOBACTER | | [facility] | | | | | | LABORATORY | | + + + + + + | RESULT | IF A YERSINIA OR VIBRIO | | REFERENCE | | | | IS SUSPECTED, PLEASE | | LAB | | | | CONTACT THE MICRO LAB | | [facility] | | | | FOR SPECIAL TESTING. | | LABORATORY | | + + + + + + | RESULT | Testing performed at | | REFERENCE | | | | TCL;[address] [facility] | | LAB | | | | Blvd;[place], [place] | | [facility] | | | | [id number]: Testing | | LABORATORY | | | | performed at [facility], [address] | | | | | [address], | | | | | | [place] [address] | | | | + + + + + + + + | Specimen | + + | Stool - Stool | | specimen (specimen) | + + + + + + + | Performing | Address | City/State/Zipcode | Phone Number | | Organization | | | | + + + + + | REFERENCE LAB | [address] [place] [address] | [place] [address] | [phone] | | [facility] | Blvd. | | | | LABORATORY | | | | + + + + + | REFERENCE LAB | [address] [place] [address] | [place] [address] | | | [facility] | Blvd. | | | | LABORATORY | | | | + + + + + CBC with Manual Differential (04/07/2019 10:01 AM PDT) + + + + + + | Component | Value | Ref Range | Performed | Pathologist | | | | | At | Signature | + + + + + + | WBC | 5.58 | 3.80 - 11.00 | REFERENCE | | | | | K/uL | LAB | | | | | | [facility] | | | | | | LABORATORY | | + + + + + + | RBC | 5.05 | 4.20 - 5.70 | REFERENCE | | | | | M/uL | LAB | | | | | | [facility] | | | | | | LABORATORY | | + + + + + + | Hemoglobin | 16.2 | 13.2 - 17.0 | REFERENCE | | | | | g/dL | LAB | | | | | | [facility] | | | | | | LABORATORY | | + + + + + + | Hematocrit | 45.7 | 39.0 - 50.0 % | REFERENCE | | | | | | LAB | | | | | | [facility] | | | | | | LABORATORY | | + + + + + + | MCV | 90.5 | 80.0 - 100.0 fl | REFERENCE | | | | | | LAB | | | | | | [facility] | | | | | | LABORATORY | | + + + + + + | MCH | 32.1 | 27.0 - 34.0 pg | REFERENCE | | | | | | LAB | | | | | | [facility] | | | | | | LABORATORY | | + + + + + + | MCHC | 35.5 | 32.0 - 35.5 | REFERENCE | | | | | g/dL | LAB | | | | | | [facility] | | | | | | LABORATORY | | + + + + + + | RDW-SD | 42.0 | 37 - 53 fl | REFERENCE | | | | | | LAB | | | | | | [facility] | | | | | | LABORATORY | | + + + + + + | Platelet | 271 | 150 - 400 K/uL | REFERENCE | | | Count | | | LAB | | | | | | [facility] | | | | | | LABORATORY | | + + + + + + | MPV | 8.7 | fl | REFERENCE | | | | | | LAB | | | | | | [facility] | | | | | | LABORATORY | | + + + + + + | Diff Type | MANUAL | | REFERENCE | | | | | | LAB | | | | | | [facility] | | | | | | LABORATORY | | + + + + + + | % Segmented | 74 | % | REFERENCE | | | | | | LAB | | | Neutrophils | | | [facility] | | | | | | LABORATORY | | + + + + + + | % | 18 | % | REFERENCE | | | Lymphocytes | | | LAB | | | | | | [facility] | | | | | | LABORATORY | | + + + + + + | Reactive | 1 | % | REFERENCE | | | Lymphocytes | | | LAB | | | | | | [facility] | | | | | | LABORATORY | | + + + + + + | % Monocytes | 5 | % | REFERENCE | | | | | | LAB | | | | | | [facility] | | | | | | LABORATORY | | + + + + + + | Eosinophils | 2 | % | REFERENCE | | | % | | | LAB | | | | | | [facility] | | | | | | LABORATORY | | + + + + + + | Neutrophils | 4.13 | 1.90 - 7.40 | REFERENCE | | | , Absolute | | K/uL | LAB | | | | | | [facility] | | | | | | LABORATORY | | + + + + + + | Absolute | 1.00 | 1.00 - 3.90 | REFERENCE | | | Lymphocytes | | K/uL | LAB | | | | | | [facility] | | | | | | LABORATORY | | + + + + + + | Absolute | 0.06 | K/uL | REFERENCE | | | Reactive | | | LAB | | | Lymphocytes | | | [facility] | | | | | | LABORATORY | | + + + + + + | Absolute | 0.28 | 0.00 - 0.80 | REFERENCE | | | Monocytes | | K/uL | LAB | | | | | | [facility] | | | | | | LABORATORY | | + + + + + + | Eosinophils | 0.11 | 0.00 - 0.50 | REFERENCE | | | , Absolute | | K/uL | LAB | | | | | | [facility] | | | | | | LABORATORY | | + + + + + + | RBC | RBC AND PLT MORPHOLOGY | | REFERENCE | | | Morphology | APPEAR NORMALComment: | | LAB | | | | Testing performed at | | [facility] | | | | TCL;[address] [facility] | | LABORATORY | | | | Blvd;[place] [address] | | | | + + + + + + + + | Specimen | + + | Blood | + + + + + + + | Performing | Address | City/State/Zipcode | Phone Number | | Organization | | | | + + + + + | REFERENCE LAB | [address] [place] [address] | [place] [address] | [phone] | | [facility] | Blvd. | | | | LABORATORY | | | | + + + + + | REFERENCE LAB | [address] [place] [address] | [place] [address] | | | [facility] | Blvd. | | | | LABORATORY | | | | + + + + + Celiac Panel, Serology (04/07/2019 10:01 AM PDT) + + + + + + | Component | Value | Ref Range | Performed | Pathologist | | | | | At | Signature | + + + + + + | Immunoglobu | 162Comment: Testing | 90 - 386 mg/dL | REFERENCE | | | arie IgA | performed at [facility], | | LAB | | | | [address], [address], | | [facility] | | | | [facility] [address] | | LABORATORY | | + + + + + + | Anti | 3Comment: | 0 - 19 units | REFERENCE | | | Gliadin Ab, | Negative | | LAB | | | IgA | | | [facility] | | | | 0 - 19 | | LABORATORY | | | | Weak | | | | | | Positive | | | | | | 20 - 30 | | | | | | Moderate | | | | | | to Strong Positive | | | | | | >30 | | | | + + + + + + | Anti | 2Comment: | 0 - 19 units | REFERENCE | | | Gliadin Ab, | Negative | | LAB | | | IgG | | | [facility] | | | | 0 - 19 | | LABORATORY | | | | Weak | | | | | | Positive | | | | | | 20 - 30 | | | | | | Moderate | | | | | | to Strong Positive | | | | | | >30 | | | | + + + + + + | Tissue | <2Comment: | 0 - 3 U/mL | REFERENCE | | | Transglutam | | | LAB | | | inase IgA | Negative | | [facility] | | | | 0 - 3 | | LABORATORY | | | | | | | | | | Weak Positive 4 - | | | | | | 10 | | | | | | | | | | | | Positive | | | | | | >10Tissue | | | | | | Transglutaminase (tTG) | | | | | | has been identifiedas | | | | | | the endomysial antigen. | | | | | | Studies have | | | | | | demonstr-ated that | | | | | | endomysial IgA | | | | | | antibodies have over | | | | | | 99%specificity for | | | | | | gluten sensitive | | | | | | enteropathy. | | | | + + + + + + | Tissue | <2Comment: | 0 - 5 U/mL | REFERENCE | | | Transglutam | | | LAB | | | inase IgG | Negative | | [facility] | | | | 0 - 5 | | LABORATORY | | | | | | | | | | Weak Positive 6 - | | | | | | 9 | | | | | | | | | | | | Positive | | | | | | >9Testing performed at | | | | | | [facility], [address] | | | | | | [place] | | | | | | [address] | | | | + + + + + + + + | Specimen | + + | Blood | + + + + + + + | Performing | Address | City/State/Zipcode | Phone Number | | Organization | | | | + + + + + | REFERENCE LAB | [address] [place] [address] | [place] [address] | [phone] | | [facility] | Blvd. | | | | LABORATORY | | | | + + + + + | REFERENCE LAB | [address] | [place] [address] | | | [facility] | Blvd. | | | | LABORATORY | | | | + + + + + Sedimentation Rate (04/07/2019 10:01 AM PDT) + + + + + + | Component | Value | Ref Range | Performed | Pathologist | | | | | At | Signature | + + + + + + | ESR | 2Comment: Testing | 0 - 20 mm/Hr | REFERENCE | | | | performed at [facility];[address] | | LAB | | | [address] | | [facility] | | | | [address];[place] [address] | | LABORATORY | | + + + + + + + + | Specimen | + + | Blood | + + + + + + + | Performing | Address | City/State/Zipcode | Phone Number | | Organization | | | | + + + + + | REFERENCE LAB | [address] [place] [address] | [place] [address] | [phone] | | [facility] | Blvd. | | | | LABORATORY | | | | + + + + + | REFERENCE LAB | [address] [place] [address] | [place] [address] | | | [facility] | Blvd. | | | | LABORATORY | | | | + + + + + C-Reactive Protein (04/07/2019 10:01 AM PDT) + + + + + + | Component | Value | Ref Range | Performed | Pathologist | | | | | At | Signature | + + + + + + | CRP | <0.3Comment: Testing | <0.5 mg/dL | REFERENCE | | | | performed at [facility];[address] | | LAB | | | | [place] | | [facility] | | | | Blvd;[place] [address] | | LABORATORY | | + + + + + + + + | Specimen | + + | Blood | + + + + + + + | Performing | Address | City/State/Zipcode | Phone Number | | Organization | | | | + + + + + | REFERENCE LAB | [address] [place] [address] | [place] [address] | [phone] | | [facility] | Blvd. | | | | LABORATORY | | | | + + + + + | REFERENCE LAB | [address] [place] [address] | [place] [address] | | | [facility] | Blvd. | | | | LABORATORY | | | | + + + + + Comprehensive Metabolic Panel (04/07/2019 10:01 AM PDT) + + + + + + | Component | Value | Ref Range | Performed | Pathologist | | | | | At | Signature | + + + + + + | Na | 138 | 135 - 145 | REFERENCE | | | | | mmol/L | LAB | | | | | | [facility] | | | | | | LABORATORY | | + + + + + + | K | 4.4 | 3.5 - 4.9 | REFERENCE | | | | | mmol/L | LAB | | | | | | [facility] | | | | | | LABORATORY | | + + + + + + | Cl | 106 | 99 - 109 mmol/L | REFERENCE | | | | | | LAB | | | | | | [facility] | | | | | | LABORATORY | | + + + + + + | CO2 | 27 | 23 - 32 mmol/L | REFERENCE | | | | | | LAB | | | | | | [facility] | | | | | | LABORATORY | | + + + + + + | Anion Gap | 9 | 5 - 20 mmol/L | REFERENCE | | | | | | LAB | | | | | | [facility] | | | | | | LABORATORY | | + + + + + + | Glucose | 95 | 65 - 99 mg/dL | REFERENCE | | | | | | LAB | | | | | | [facility] | | | | | | LABORATORY | | + + + + + + | BUN | 17 | 8 - 25 mg/dL | REFERENCE | | | | | | LAB | | | | | | [facility] | | | | | | LABORATORY | | + + + + + + | Creatinine | 1.5 (H) | 0.70 - 1.30 | REFERENCE | | | | | mg/dL | LAB | | | | | | [facility] | | | | | | LABORATORY | | + + + + + + | BUN/Creatin | 11 | | REFERENCE | | | ine Ratio | | | LAB | | | | | | [facility] | | | | | | LABORATORY | | + + + + + + | Calcium | 9.9 | 8.5 - 10.5 | REFERENCE | | | | | mg/dL | LAB | | | | | | [facility] | | | | | | LABORATORY | | + + + + + + | Protein, | 7.5 | 6.3 - 8.2 g/dL | REFERENCE | | | Total | | | LAB | | | | | | [facility] | | | | | | LABORATORY | | + + + + + + | Albumin | 4.3 | 3.6 - 5.0 g/dL | REFERENCE | | | | | | LAB | | | | | | [facility] | | | | | | LABORATORY | | + + + + + + | Globulin | 3.2 | 1.3 - 4.9 g/dL | REFERENCE | | | | | | LAB | | | | | | [facility] | | | | | | LABORATORY | | + + + + + + | A/G Ratio | 1.3 | 1.0 - 2.4 | REFERENCE | | | | | | LAB | | | | | | [facility] | | | | | | LABORATORY | | + + + + + + | BILIRUBIN, | 0.5 | 0.1 - 1.5 mg/dL | REFERENCE | | | TOTAL | | | LAB | | | | | | [facility] | | | | | | LABORATORY | | + + + + + + | ALK PHOS | 113 | 35 - 115 U/L | REFERENCE | | | | | | LAB | | | | | | [facility] | | | | | | LABORATORY | | + + + + + + | AST | 20 | 10 - 45 U/L | REFERENCE | | | | | | LAB | | | | | | [facility] | | | | | | LABORATORY | | + + + + + + | ALT | 30 | 10 - 65 U/L | REFERENCE | | | | | | LAB | | | | | | [facility] | | | | | | LABORATORY | | + + + + + + | Estimated | 48 (L)Comment: GFR <60: | >60 | REFERENCE | | | GFR | CHRONIC KIDNEY DISEASE, | mL/min/1.73m2 | LAB | | | | IF FOUND OVER A 3 MONTH | | [facility] | | | | PERIOD.GFR <15: KIDNEY | | LABORATORY | | | | FAILURE.FOR | | [...] | | | | | performed at [facility];[address] | | | | | | [address] | | | | | | [address];[place] [address] | | | | | | | | | | + + + + + + + + | Specimen | + + | Blood | + + + + + + + | Performing | Address | City/State/Zipcode | Phone Number | | Organization | | | | + + + + + | REFERENCE LAB | [address] | [place] [address] | [phone] | | [facility] | Blvd[address] | | | | LABORATORY | | | | + + + + + | REFERENCE LAB | [address] | [place] [address] | | | [facility] | Blvd. | | | | LABORATORY | | | | + + + + + from Last 3 Months Insurance + +--------+ +--------+-------+---------+--------+ | Payer | Benefi | Subscriber | Effect | Phone | Address | Type | | | t Plan | ID | emiliano | | | | | | / | | Dates | | | | | | Group | | | | | | + +--------+ +--------+-------+---------+--------+ | [employer] [place] [id number] | | | | [place] | | | CHOICE | | 019-Pr | | | ity | | | PC3 | | esent | | | | + +--------+ +--------+-------+---------+--------+ | [employer] [place] | [id number] | | | | Indemn | | | CHOICE | | 019-Pr | | | ity | | | PC3 | | esent | | | | + +--------+ +--------+-------+---------+--------+ + +--------+ +--------+ + + | Guarantor Name | Accoun | Relation to | Date | Phone | Billing Address | | | t Type | Patient | of | | | | | | | | | | + +--------+ +--------+ + + | Antonio Simpson | Person | Self [birth year] | [address] | | | al/Fam | | 1961 | [phone] | [place] [address] | | | jennifer | | | 6 (Home) | | + +--------+ +--------+ + + | Antonio Simpson | Person | Self [birth year] | [address] | | | al/Fam | | 1961 | [phone] | [place] [address] | | | jennifer | | | 6 (Home) | | + +--------+ +--------+ + + Advance Directives + + + + + | Type | Date Recorded | Patient | Explanation | | | | Student Ministries Director | | + + + + + | Power of | | | | | Guardian Family Member | | | | + + + + + | Advance | 05/15/2019 | | | | Directive | 1:11 PM | | | + + + + +
--- OUTSIDE RECORDS SUMMARY | ~2019-07-01 | XMS | Encounter Summary ---
Demographics + + + | Address | [address] | | | [place] [address] | + + + | Home Phone | | + + + | Preferred Language | Unknown | + + + | Marital Status | | + + + | Zoroastrianism Affiliation | Unknown | + + + | Race | Unknown | + + + | Ethnic Group | Unknown | + + + Author + + + | Author | [facility] | | | and [place] | + + + | Organization | [facility] | | | and [place] | [...] Team Providers + +------+ + | Care Health Economist Name | Role | Phone | + +------+ + | Ihsan Umaña MD | PCP | | + +------+ + Reason for Visit +---------+ + | Reason | Comments | +---------+ + | Imaging | | +---------+ + Encounter Details +--------+ + + + + | Date | Type | Department | Care Team | Description | +--------+ + + + + | 06/25/ | Telephone | [facility] | Gladis Melo | Imaging | | 2019 | | PHYSIATRY [address] | ARYA [address] | | | | | [place], | [facility] | | | | | [place] [address] | [address] [place], [place] | | | | | [phone] | [address] | | | | | | | [...]
--- OUTSIDE RECORDS SUMMARY | ~2019-07-01 | XMS | Encounter Summary ---
Demographics + + + | Address | [address] | | | [place] [address] | + + + | Home Phone | | + + + | Preferred Language | Unknown | + + + | Marital Status | | + + + | Caodaism Affiliation | Unknown | + + + | Race | Unknown | + + + | Ethnic Group | Unknown | + + + Author + + + | Author | [facility] | | | and [place] | + + + | Organization | [facility] | | | and [place] | [...] Team Providers + +------+ + | Care Relay Tester Helper Name | Role | Phone | + [...] + + + | | | | Diagnoses | | | | | | | History of | | | | | | | Clostridium | | | | | | | difficile | | | | | | | infection | | | | | | | Change in | | | | | | | consistency | | | | | | | of stool | | | | | | | Gastroesopha | | | | | | | geal reflux | | | | | | | disease, | | | | | | | esophagitis | | | | | | | presence not | | | | | | | specified | | | | | | | Positive | | | | | | | occult stool | | | | | | | blood test | | | | | | | Heartburn | | | | | | | Weight loss | | | | | | | Procedures | | | | | | | [place] | | | | | | | COLONOSCOPY | | | | | | | FLX DX | | | | | | | W/COLLJ SPEC | | | | | | | WHEN PFRMD | | | | | | | [place] EGD | | | | | | | TRANSORAL | | | | | | | BIOPSY | | | | | | | SINGLE/MULTI | | | | | | | PLE [place] | | | | | | | ANESTHESIA | | | | | | | LOWER INTST | | | | | | | ENDOSCOPIC | | | | | | | PX SCR COLSC | | | | | | | | | | | | | | COLONOSCOPY | | | | | | | W/ EGD | | | +--------+--------+ + + + + Encounter Details +--------+ + + + + | Date | Type | Department | Care Team | Description | +--------+ + + + + | 06/02/ | Anesthesia | [facility] | Carrie Saldana, | | | 2019 | Event | [facility] | FLAKITA [address]al [address] | | | | | [address] | | | | [address] [place], [place] | [place] [address] | | | | | [address] | [phone] | | | | | [phone] | | | +--------+ + + + + Anesthesia Record + + + + + | Procedure Name | Responsible | Anesthesia Start | Anesthesia Stop Time | | | Anesthesiologist | Time | | + + + + + | COLONOSCOPY W/ EGD | Lian joe | 06/02/19 0725 | 06/02/19 0756 | | (N/A ) | FLAKITA Phan | | | + + + + + +----+---+ + + | Da | T | Event | Comment | | te | i | | | | | m | | | | | e | | | +----+---+ + + | 11 | 0 | | | | /0 | 7 | | | | 4/ | 2 | | | | 20 | 3 | | | | 19 | | | | +----+---+ + + | | 0 | An Start | Reassessment prior to anesthesia induction/procedure. | | | 7 | | | | | 2 | | | | | 5 | | | +----+---+ + + | | 0 | Anesthesia | | | | 7 | Ready | | | | 2 | | | | | 7 | | | +----+---+ + + | | 0 | Pre-Procedu | Time out. No antibiotics. | | | 7 | ral Timeout | | | | 3 | Completed | | | | 0 | | | +----+---+ + + | | 0 | First | | | | 7 | Inc/Proc St | | | | 3 | | | | | 1 | | | +----+---+ + + | | 0 | an stop | | | | 7 | data | | | | 5 | | | | | 6 | | | +----+---+ + + | | 0 | An Stop | Patient handed off to recovery nurse. | | | 5 | | | | | 6 | | | +----+---+ + + +------+ | Meds | +------+ + + + | Name | Total | + + + | lidocaine 2% | 50 mg | + + + | propofol | 120 mg | + + + | propofol infusion | 247.45 mg | + + + | sodium chloride 0.9% (NS) | 0 mL | | infusion | | + + + + + | Name | + + | N2O Flow Rate (L/Min) | + + | O2 Flow Rate (L/Min) | + + | Insp O2 | + + | Exp N2O | + + | Air Flow Rate (L/Min) | + + | Secondary O2 Flow Rate | + + + + | No blood administrations on file. | + + +--------+ + + + | Type | Details | Placement | Removal | +--------+ + + + | Periph | 06/02/19; 718; Right; Hand; | 06/02/19718 by | 06/02/19813 by | | eral | [id number] catheter system; | Jayne Hobson, RN | Kassie Alves RN | | IV | 06/02/19; 813 | | | +--------+ + + + documented in this encounter Social History + + + +--------+ + [...] Diagnoses Not on filedocumented in this encounter Administered Medications + +--------+ +-------+------+------+ | Medication Order | MAR | Action | Dose | Rate | Site | | | Action | Date | | | | + +--------+ +-------+------+------+ | lidocaine (PF) 2% injection | Given | 06/02/20 | 50 mg | | | | Intravenous, PRN, Starting Mon | | 19 7:31 | | | | | 06/02/19 at 0731, Anesthesia | | AM PST | | | | | Intra-op | | | | | | + +--------+ +-------+------+------+ +---+---+ | | | +---+---+ + +-------+ +-------+---+---+ | propofol (DIPRIVAN) injection | Given | 06/02/20 | 20 mg | | | | Intravenous, PRN, Starting Mon | | 19 7:41 | | | | | 06/02/19 at 0731, Anesthesia | | AM PST | | | | | Intra-op | | | | | | + +-------+ +-------+---+---+ +-------+ +-------+---+---+ | Given | 06/02/20 | 40 mg | | | | | 19 7:33 | | | | | | AM PST | | | | +-------+ +-------+---+---+ | Given | 06/02/20 | 60 mg | | | | | 19 7:31 | | | | | | AM PST | | | | +-------+ +-------+---+---+ +---+---+ | | | +---+---+ + + + + +-------+---+ | propofol infusion (DIPRIVAN) 10 | Rate/Dos | 06/02/20 | 60 | 36.4 | | | mg/mL infusion Intravenous, | e Change | 19 7:49 | mcg/kg/m | mL/hr | | | CONTINUOUS PRN, Starting Mon | | AM PST | in | | | | 06/02/19 at 0731, Anesthesia | | | | | | | Intra-op | | | | | | + + + + +-------+---+ + + + +-------+---+ | Rate/Dose Change | 06/02/20 | 80 | 48.5 | | | | 19 7:43 | mcg/kg/m | mL/hr | | | | AM PST | in | | | + + + +-------+---+ | Rate/Dose Change | 06/02/20 | 100 | 60.6 | | | | 19 7:37 | mcg/kg/m | mL/hr | | | | AM PST | in | | | + + + +-------+---+ +---+---+ | | | +---+---+ + + + +---+---+---+ | sodium chloride 0.9% (NS) | Continue | 06/02/20 | | | | | infusion at 100 mL/hr, | d by | 19 7:25 | | | | | Intravenous, CONTINUOUS, Starting | Anesthes | AM PST | | | | | 06/02/19 at 0700, Pre-op | ia | | | | | + + + +---+---+---+ +---------+ +---+-------+---+ | New Bag | 06/02/20 | | 100 | | | | 19 7:20 | | mL/hr | | | | AM PST | | | | +---------+ +---+-------+---+ +---+---+ | | | +---+---+ documented in this encounter"
--- OUTSIDE RECORDS SUMMARY | ~2019-07-01 | XMS | Encounter Summary ---
Demographics + + + | Address | [address] | | | [place] [address] | + + + | Home Phone | | + + + | Preferred Language | Unknown | + + + | Marital Status | | + + + | Sabianist Affiliation | Unknown | + + + | Race | Unknown | + + + | Ethnic Group | Unknown | + + + Author + + + | Author | [facility] | | | and [place] | + + + | Organization | [facility] | | | and [place] | [...] Team Providers + +------+ + | Care Billiard Parlor Manager Name | Role | Phone | + +------+ + | Ihsan Umaña MD | PCP | | + +------+ + Encounter Details +--------+ + + + + | Date | Type | Department | Care Team | Description | +--------+ + + + + | 05/08/ | Abstract | [facility] [place] | Provider, | | | 2019 | | [address]SIATRY [address] | [address] | | | | | [place], | [place] | | | | | [place] [address] | [place] [address] | | | | | [phone] | | | +--------+ + + + [...]
--- OUTSIDE RECORDS SUMMARY | ~2019-07-01 | XMS | Encounter Summary ---
Demographics + + + | Address | [address] | | | [place] [address] | + + + | Home Phone | | + + + | Preferred Language | Unknown | + + + | Marital Status | | + + + | Rastafarian Affiliation | Unknown | + + + | Race | Unknown | + + + | Ethnic Group | Unknown | + + + Author + + + | Author | [facility] | | | and [place] | + + + | Organization | [facility] | | | and [place] [...] Team Providers + +------+ + | Care Lay Out Former Name | Role | Phone | + +------+ + | Ihsan Umaña MD | PCP | | + +------+ + Reason for Visit + + + | Reason | Comments | + + + | Records Request | | + + + Encounter Details +--------+ + + + + | Date | Type | Department | Care Team | Description | +--------+ + + + + | 05/27/ | Telephone | [facility] [place] | Gladis Melo | Records Request | | 2019 | | [address]SIATRY [address] | [address] | | | | | [place], | [facility] | | | | | [place] [address] | [address] [place], [place] | | | | | [phone] | [address] | | | | | | | [...]
--- OUTSIDE RECORDS SUMMARY | ~2019-07-01 | XMS | Encounter Summary ---
Demographics + + + | Address | [address] | | | [place] [address] | + + + | Home Phone [...] | [facility] | | | and [place] | + + + | Organization | [facility] | | | and [place] | [...] Team Providers + +------+ + | Care Digital Media Associate Name | Role | Phone | + +------+ + | Ihsan Umaña MD | PCP | | + +------+ + Reason for Visit + + + | Reason | Comments | + + + | Abdominal Pain | | + + + Evaluate & Treat (Routine) + + + + + + + | Status | Reason | Specialty | Diagnoses / | Referred By | Referred To | | | | | Procedures | Contact | Contact | + + + + + + + | Pending | Specialty | Gastroenterol | Diagnoses | Radha, | Nick, | | Review | Services | ogy | Lower | Estuardo Agudelo, | Virginia Mckeon NP | | | Required | | abdominal | MD [address] | [address] | | | | | pain, | [address] | [address] | | | | | unspecified | [place], [place] | [place], | | | | | | [address] | [place] [address] | | | | | | Phone: | Phone: | | | | | | [phone] | [phone] | | | | | | Fax: | Fax: | | | | | | [phone] | [phone] | + + + + + + + Encounter Details +--------+---------+ + + + | Date | Type | Department | Care Team | Description | +--------+---------+ + + + | 04/07/ | Office | [facility] | Jacqueline, | History of | | 2019 | Visit | GASTROENTEROLOGY | [address] | Clostridium | | | | [address] | [address] | difficile infection | | | | [place], [place] | [address] [place], [place] | (Primary Dx); Change | | | | [id number] | [id number] | in consistency of | | | | [phone] | | stool; Weight loss; | | | | | | Heartburn; | | | | | | Gastroesophageal | | | | | | reflux disease, | | | | | | esophagitis presence | | | | | | not specified; | | | | | | Positive occult | | | | | | stool blood test | +--------+---------+ + + + Social History + + + +--------+------+ | Tobacco Use | Types | Packs/Day | Years | Date | | | | | Used | | + + + +--------+------+ | Current Every Day | Cigarettes | | | | | Smoker | | | | | + + + +--------+------+ + +---+---+---+ | Smokeless Tobacco: | | | | | Never Used | | | | + +---+---+---+ + + | Comments: 1 pack daily | + + + + +---------+ + | Alcohol Use | Drinks/Week | oz/Week | Comments | + + +---------+ + | Yes | | | occasionally | + + +---------+ + + + [...] + + + | Blood Pressure | 138/90 | 04/07/2019 8:22 AM | | | | | PDT | | + + + + + | Pulse | 74 | 04/07/2019 8:22 AM | | | | | PDT | | + + + + + | Temperature | - | - | | + + + + + | Respiratory Rate | - | - | | + + + + + | Oxygen Saturation | - | - | | + + + + + | Inhaled Oxygen | - | - | | | Concentration | | | | + + + + + | Weight | 98.6 kg (217 lb 6.4 | 04/07/2019 8:22 AM | | | | oz) | PDT | | + + + + + | Height | 185.4 cm (6' 1") | 04/07/2019 8:22 AM | | | | | PDT | | + + + + + | Body Mass Index | 28.68 | 04/07/2019 8:22 AM | | | | | PDT | | + + + + + documented in this encounter Patient Instructions Patient Instructions Nkechi Phillips ARNP - 04/07/2019 9:00 AM PDTFormatting of thi s note might be different from the original. Clostridium Difficile Infection Clostridium difficile (C. diff) bacteria can be veryharmful. They affect the intestinal t ract. They can cause symptoms ranging from mild diarrhea to severe inflammation of thelarg e intestine (colon). C. diff infection is most common during the days and weeks after treatm ent with antibiotics. Anyone can become infected. But the risk is greatly increased for peop le in hospitals and for people living in nursing homes or long-term care facilities.This i s because antibiotic use is common there. Germs also spread easily in these places. What causesC. diff infection? The stomach andintestineshave hundreds of kinds of bacteria. Many of these bacteria act ually help keep harmful bacteria likeC. difffrom causing problems. Small amounts of C. d iff are normal in the intestine and don t cause problems. When you take an antibiotic, the normal balance of good and bad bacteriamay be affected. There may be too few good bacteri a and too many harmful bacteria likeC diff. In hospitals and nursing homes,C. diffmay be spread from an infected person to others. This can happen when staff or visitors touch in fected people orobjects such as bed rails, stethoscopes, or bedpans and then touch other p eople or surfaces. What are the symptoms of C. diff infection? About half of people withC. diffinfection have no symptoms. Yet they can still pass the infection to others. Others do have symptoms. These include: Watery diarrhea, which may contain mucus Pain and cramping Fever Some who are infected develop serious problems. Symptoms include: Belly (abdominal) pain Abdominal swelling Nausea and vomiting Little or no diarrhea How isC. diff infection diagnosed? To confirm the infection, a sample of stool is tested for the bacteria or thetoxins made by the bacteria. How isC. diff infection treated? Your healthcare provider will tell you tostop taking any antibioticsyou have been presc ribed, based on your healthcare needs.He or she may prescribedifferent medicines as need ed.In certain cases, you may be given an antibiotic directed at theC. diffinfection. T alk with your healthcare provider before stopping or starting any medicines. Fluids are often given by IV (intravenously) through a vein. This helps replace fluids l ost through diarrhea. In rare cases you may need surgeryif treatment doesn tcure severe symptoms To lessen symptoms: Drink plenty of fluids to replace water lost through diarrhea. Talk with your healthcare provider or nurse about which fluids are best. Follow your healthcare provider s instructions for when and what to eat. Unless your healthcare provider tells you to do so, don't take medicines for diarrhea. Tell your healthcare provider if symptoms return. Even after treatment,C. diffmay co me back. Your doctor may give you an additional medicine if your symptoms come back or you are at [facility] for another C. diff infection. This medicine is called bezlotoxumab. It is not an antibio tic, but it can help keep your C. diff symptoms from returning. What are the complications of C. diff infection? Complications include: Dehydration Electrolyte imbalances Low protein in the blood Severe widening (dilation) of the large intestine A hole (perforation) in the bowel Low blood pressure Kidney failure Inflammation or infection all over the body How is C. diff prevented? Hospitals and nursing homes take these steps to help preventC. diffinfections: Limiting use of antibiotics.Giving antibiotics only when needed can help reduceC. di ffinfections. Handwashing.Hospital staff should wash their hands before and after treating each pers on. They should also wash their hands after touching any surface in someone's' room. Soap an d water work better than alcohol-based hand protective signal operator. Protective clothing.Healthcare workers should wear gloves and a gown when entering the room of someone withC. diff infection. They should remove these items before leaving and then wash their hands. Private rooms.People withC. diffshould be in private rooms. Or they may share room s with others who have the same infection. Thorough cleaning.Equipment and rooms should be cleaned and disinfected every day. Education. Everyone should be shown the best ways to avoid infection. You can do the following to help prevent C. diff: Take antibiotics only when you really need them.Antibiotics don t help treat illness es caused by viruses. This includes colds and the flu. Don t ask for antibiotics from your healthcare provider if he or she says they won t work. When you are given antibiotics, take them as directed.Don t take more or less than t he dosage prescribed. Do not take them for shorter or longer than your provider tells you to , even if you feel better. Wash your hands carefully.Do this after using the bathroom and before eating. Use plen ty of soap and warm water. Alcohol-based hand protective signal operator may not work againstC. diffgerms. Everyone can help prevent C. diff: In a hospital or care facility: Wash your hands well before and after visiting someone who hasC. diffinfection. Use soap and water. Alcohol-based hand cleanersmay not work againstC. diff. If the staff asks you to, wear gloves. Take any other steps you are asked to follow to h elp prevent infection. At home: If instructed, wear gloves when caring for a family member withC. diffinfection. Thr ow the gloves away after each use. Then wash your hands well. Wash the person s clothes, bed linen, and towels separately. Use hot water. Use both d etergent and liquid bleach. Disinfect surfaces in the person s room. This includes the phone, light switches, and remote controls. Practice good handwashing: Use warm water and plenty of soap. Rub your hands together well. Clean your whole hand.Wash under nails, between fingers, and up your wrists. Wash for at least15 seconds to 20seconds. Rinse.Let the water run down your fingers, not up your wrists. Dry your hands well.Then use a paper towel to turn off the faucet and open the door. Date Last Reviewed: 07/30/201619995163-4958 [employer]. [address] [place] [address]. All righ ts reserved. This information is not intended as a substitute for professional medical care. Always follow your healthcare professional's instructions. My C. diff Infection Treatment Plan C. diff infection occurs in your colon and is caused by Clostridium difficile (C. diff) cindy teria. Use this treatment plan to treat your infection at home and avoid spreading it to ot ers. Read on to learn what to do. Garcia goals of your treatment plan 1. Learn how to keep C. diff from spreading. This includes practicing good handwashing and taking steps to prevent C. diff at home and at work. 2. Watch for symptoms of C. diff coming back and get help if you need it. 3. Take medicines for C. diff as your doctor tells you to. Notes: Important information Use this page to keep your doctor's name and phone number and other important information i n one place. 1. Fill in the information below or ask your doctor, nurse, or loved one to fill it out 2. Post this page somewhere you can easily see it, such as on your refrigerator Patient name: Contact information Primary doctor's name Phone number Other healthcare provider Specialty Phone number Hospital or clinic name Address Phone number Follow-up appointments Test or appointment Location Date Time In addition to C. diff, I also have these health problems: How should I wash my hands so I don't spread C. diff? Clostridium difficile (C. diff) germs can stay on your hands after you use the bathroom, th en spread to any person, surface, or object you touch. Washing your hands often is one of th e best ways to not spread C. diff. To wash your hands: Rinse your hands first, then scrub wi th soap for 30 to 40 seconds. Rinse your hands well and dry them. Below are more tips for go od handwashing. Always wash hands: After using the bathroom Before and after preparing food Before and after eating After touching any object or surface that may have C. diff germs on it Alcohol-based protective signal operator don't work against C. diff germs. How can I notspread C. diff? Clostridium difficile (C. diff) germs can live outside your body for several months. Here's how to keep the germs from spreading at home and at work. Get prepared Gather your cleaning supplies: Disposable (rubber) gloves Paper towels Soap Chlorine bleach Trash bags or plastic bags Follow safe and clean habits: After washing your hands, dry them with a paper towel, then throw the paper towel away Each day, clean the bathroom and any other areas in the house that may have C. diff germ s Wash your hands often! Especially after using the bathroom or cleaning or handling any item s that may have C. diff germs on them. A note for caregivers If you are caring for a patient who has C. diff, use the tips in this treatment plan to milton id spreading the infection to yourself or others. How can I tell if my C. diff has come back? C. diff is an infection in the colon caused by Clostridium difficile (C. diff) bacteria. So metimes, C. diff comes back. This can happen any time within weeks to months after you finis h taking your medicine. Watch for symptoms and know what to do if your infection comes back. Symptoms to watch for: Watery diarrhea Fever Belly pain and cramping Nausea and vomiting Loss of appetite and weight loss In more severe cases, you may have: Watery diarrhea (up to 10 to 15 times a day) with blood or pus Fever of 101F (38.3C) or higher Swollen belly Severe pain in your lower belly C. diff can come back in about 1 in 4 patients. If C. diff does come back, you are at highe r risk for infection again in the future. If I notice symptoms of C. diff, or think that my infection has come back, I will: Your treatment plan goals C. diff is a serious illness, but it can be treated. You can stop thespread of infection to others and lower the chances of getting the infection again. Here are the 3 goals for treatment and specific steps you can take to reach each goal. 1. Read these and decide which steps you are ready to take 2. Ask your doctor or nurse to explain any steps you are unsure of 3. Come up with a few ideas of your own 3 goals of your treatment plan Goal 1. Learn how to keep C. diff from spreading. Steps I can take: Practice good handwashing daily Each day, use chlorine-based bleach to disinfect surfaces (such as counters and light sw itches) and areas at home (such as the bathroom) that may have C. diff germs Ask others to wear gloves and to wash their hands if helping me in the bathroom Other: Other: Goal 2: Watch for symptoms of C. diff coming back and get help when I need it. Steps I can take: Know what symptoms to watch for if C. diff comes back Know when and how to contact my doctor if symptoms return Other: Other: Goal 3: Take medicines for C. diff exactly as my doctor tells me to. Steps I can take: Ask my doctor to explain any medicines I'm prescribed Know when, how much, how many, and how often to take my medicines Know what side effects to watch for when taking my medicines Not stop taking my medicines unless my doctor tells me to Other: Other: Date Last Reviewed: 02/27/201719993886-7290 [employer]. [address] [place] [address], [place] [address]. All righ ts reserved. This information is not intended as a substitute for professional medical care. Always follow your healthcare professional's instructions. documented in this encounter Progress Notes Nkechi Phillips ARNP - 04/07/2019 9:00 AM PDTFormatting of this note might be diffe rent from the original. Chief Complaint Patient presents with Abdominal Pain Patient ID: Antonio Simposn is a 58 y.o. male. He presents for new patient evaluation of recurring clostridium difficile infections, left lower abdominal pain, and change in bowel habits. HPI This is a New Patient from [facility] Patient Referred by Dandre mUaña MD Reviewed briefly for added on new patient of two packets of information faxed in over 40 so me pages. This is a 58 yo male . He has a PCP at [facility] resides in [facility]. He is here for intermittent abdominal cramping of the left lower abdomen pain "dull ache 3/10" with pasty to loose yellow or green colored stools since recent left kidney cancer di agnosed October 02, 2018. He went into his a doctor in [facility] who he told he had abdomin al pain. He was sent to that local emergency room in [facility]. He was jose d he was found to have left kidney cancer per CT was sent for surgical removal and placed on antibiotics. No imaging records. He was treated with antibiotics during that hospitalizatio n. A month later he kept having left lower abdomen and loose stools. He now was residing in [facility]. So he went to [place] was found he had clostridium difficile infection treated with vancomycin in October. He continued to have loose stools repeat testing found he still h ad the infection repeat treatment with Flagyl 30 days supply. During that visit he was found to have a positive stool test for blood in stool. I could see he was treated with Augmentin 500 mg po bid x 21 days on February 27, 2019. Occasional abdominal cramping with no blood seen per his recall. The stools look green or yellow. He weighed 252 lbs before his kidney cance r and then developing the c.diffile infection. He is now at 210 to 217 lbs since September 2018. He has a loss of appetite. He has heartburn with burping/belching for years. No past EGD or colonoscopy. Print Rx fax to [facility] in [place]. He now having one very loose pasty stool un able to remove it all at times. No fecal incontinence. Medical hx includes: alcoholism, chronic back pain, anxiety, carcinoma in situ of kidney-le ft, major depressive disorder, post traumatic stress disorder, sleep apnea, and tobacco abus e. There is no record of patient having ulcerative colitis it seems to be noted in his past medical history which patients denies [facility] notes: CT abdomen pelvis with contrast no date of service noted: 1. No CT findings to explain left lower quadrant abdominal pain. 2. Postoperative changes following left nephrectomy. There is postoperative stranding in the operative bed without evidence of fluid collection or mass. 3 colonic diverticulosis wi thout evidence of diverticulitis. 4. Mildly prominent very Form appendix without evidence for mural thickening or significan t adjacent. CMP showed no eleavted LFT; high triglycerides and glucose unknown if a fasting blood test Patient taking NSAIDs: no Anti-coagulation medications: no Use of herbal supplements: no Previous problems with moderate sedation: yes Family history of colon cancer no Family history of colon polyps no Review of Systems Constitutional: Positive for diaphoresis. Negative for activity change, appetite change, ch ills, fatigue, fever and unexpected weight change. HENT: Negative for ear pain, mouth sores, nosebleeds, sore throat, trouble swallowing and v oice change. Eyes: Negative for pain, redness and visual disturbance. Respiratory: Negative for cough, choking, chest tightness, shortness of breath and wheezing . Cardiovascular: Negative for chest pain, palpitations and leg swelling. Gastrointestinal: Positive for diarrhea and rectal pain. Negative for abdominal distention, abdominal pain, anal bleeding, blood in stool, constipation, nausea and vomiting. Endocrine: Negative for cold intolerance, heat intolerance and polydipsia. Genitourinary: Negative for difficulty urinating, dysuria, frequency, hematuria, testicular pain and urgency. Musculoskeletal: Positive for arthralgias, back pain and gait problem. Negative for joint s welling, myalgias, neck pain and neck stiffness. Skin: Negative for color change, rash and wound. Allergic/Immunologic: Negative for environmental allergies, food allergies and immunocompro mised state. Neurological: Negative for dizziness, tremors, seizures, syncope, weakness, light-headednes s and headaches. Hematological: Negative for adenopathy. Does not bruise/bleed easily. Psychiatric/Behavioral: Negative for agitation, behavioral problems, confusion, dysphoric m ood, hallucinations and suicidal ideas. The patient is not nervous/anxious. No Known Allergies Outpatient Encounter Medications as of 04/07/2019 Medication Sig Dispense Refill gabapentin (NEURONTIN) 300 mg capsule Take 300 mg by mouth 3 times daily. omeprazole (PRILOSEC) 20 mg capsule Take 1 capsule by mouth every morning (before break fast) for 30 days. 30 capsule 11 polyethylene glycol (GOLYTELY) 236 g suspension Take 4,000 mLs by mouth once for 1 dose . 1 mL 0 No facility-administered encounter medications on file as of 04/07/2019. Past Medical History: Diagnosis Date Medical hx includes: alcoholism, chronic back pain, anxiety, carcinoma in situ of kidney-l eft, major depressive disorder, post traumatic stress disorder, sleep apnea, and tobacco abu se. There is no record of patient having ulcerative colitis it seems to be noted in his past medical history which patients denies Past Surgical History: Procedure Laterality Date KIDNEY REMOVAL Left carcinoma in situ left kidney 09/2018 Family History Problem Relation Age of Onset Colon cancer Neg Hx Crohn's disease Neg Hx Colon polyps Neg Hx Social History Socioeconomic History Marital status: Spouse name: Not on file Number of children: Not on file Years of education: Not on file Highest education level: Not on file Social Needs Financial resource strain: Not on file Food insecurity - worry: Not on file Food insecurity - inability: Not on file Transportation needs - medical: Not on file Transportation needs - non-medical: Not on file Occupational History Not on file Tobacco Use Smoking status: Current Every Day Smoker Types: Cigarettes Smokeless tobacco: Never Used Tobacco comment: 1 pack daily Substance and Sexual Activity Alcohol use: Yes Comment: occasionally Drug use: Not Currently Sexual activity: Not on file Other Topics Concern Not on file Social History Narrative Not on file Objective: Physical Exam Vitals: 04/07/19 0822 BP: 138/90 Pulse: 74 Weight: 98.6 kg (217 lb 6.4 oz) Height: 1.854 m (6' 1") Body mass index is 28.68 kg/m. Gen: NAD Mouth and Throat: [place], moist, clean, [place] midline, Mallampati 2 CV: Regular Lungs: CTAB Abd: Very mild LLQ tender, +BS, no masses or organomegaly Ext: No LE edema HENT: EOMI, no scleral icterus Skin: Warm, moist, intact Neuro: Intact and symmetric grossly No components found for: HGBA1C No results found for: WBC, HGB, HCT, MCV, PLT No results found for: NA, K, CL, CO2, ANIONGAP, GLUF, BUN, CREATININE, BCR, ALB, GLOB, BILI TOT, AST, ALT, EGFR No results found for: CHOL, TRIG, HDL, LDL No results found for: TSH Assessment and Plan: Visit Diagnosis & Associated Orders: 1. History of Clostridium difficile infection Clostridium difficile A and B EIA Case Request - OR/ENDO/ASC/OB: COLONOSCOPY W/ EGD polyethylene glycol (GOLYTELY) 236 g suspension 2. Change in consistency of stool CBC with Manual Differential Comprehensive Metabolic Panel Sedimentation Rate Celiac Panel, Serology C-Reactive Protein Culture, Stool Fecal leukocytes Case Request - OR/ENDO/ASC/OB: COLONOSCOPY W/ EGD polyethylene glycol (GOLYTELY) 236 g suspension 3. Weight loss Case Request - OR/ENDO/ASC/OB: COLONOSCOPY W/ EGD polyethylene glycol (GOLYTELY) 236 g suspension 4. Heartburn Helicobacter pylori Ag, EIA, Stool Case Request - OR/ENDO/ASC/OB: COLONOSCOPY W/ EGD polyethylene glycol (GOLYTELY) 236 g suspension 5. Gastroesophageal reflux disease, esophagitis presence not specified Helicobacter pylori Ag, EIA, Stool Case Request - OR/ENDO/ASC/OB: COLONOSCOPY W/ EGD polyethylene glycol (GOLYTELY) 236 g suspension 6. Positive occult stool blood test Case Request - OR/ENDO/ASC/OB: COLONOSCOPY W/ EGD polyethylene glycol (GOLYTELY) 236 g suspension Recommendations So ordered stool and labs today. As soon as those come will tell me if he needs more medica tion aside scheduling for a colonoscopy which may need to be with a fecal transplant based o n findings again he understood. Continue probiotics, hydration and tylenol prn for pain. Clostridium difficile What is antibiotic-associated diarrhea? Diarrhea describes bowel movements that are r unny or watery, and happen 3 or more times in a day. There are different causes of diarrhea. Antibiotic-associated diarrhea can happen when people are taking or have just finished taki ng certain antibiotic medicines. Most often, it is caused by an infection with bacteria call ed "C. difficile" (or "C. diff" for short). C. difficile normally lives in the intestines. W hen people are on antibiotics, the C. difficile in their intestines can overgrow. People can get antibiotic-associated diarrhea even if they don't take antibiotics. They can get C. difficile infection if they touch infected people or surfaces and then don't wash th eir hands. What are the symptoms of antibiotic-associated diarrhea? The most common symptoms are : ?Watery diarrhea (3 or more bowel movements for 2 or more days) ?Mild belly cramps People can also have more severe symptoms, such as: ?Blood or pus in their bowel movements ?Fever ?Belly pain, nausea, or loss of appetite ?Dehydration This is when the body loses too much water. It can cause people to have da rk yellow urine and feel thirsty, tired, dizzy, or confused. Sometimes people have C. difficile infection but don't have any symptoms. These people can still spread the infection to others. Is there a test for antibiotic-associated diarrhea? Yes. Your doctor or nurse can cornelius t you for C. difficile infection by doing tests on a sample of your bowel movement. Is there anything I can do on my own to get better? Yes. To help yourself get better, you can: ?Drink a lot of liquids that have water, salt, and sugar. Good choices are water mixed with juice, flavored soda, and soup broth. If you are drinking enough, your urine will be light yellow or almost clear. ?Try to eat a little food. Good choices are potatoes, noodles, rice, oatmeal, crackers, ban anas, soup, and boiled vegetables. ?Ask your doctor if you should take "probiotics." Probiotics are bacteria that are good for the intestines. Recurrent symptoms after several weeks of treatment with vancomycin, metronidazole, and irene xicillin. Recommended repeat stool testing to see if still any infection so awaiting stool testing. I f positive may try one last treatment vancomycin 125 mg po qid x 10 plus rifaximin 400 mg po tid x 20 days if still no improvement proceed with Fecal microbiota transplantation (FMT). Discussed treatment using Fecal microbiota transplantation (instillation of processed stool collected from a healthy donor into the intestinal tract of a patient with recurrent Clostr idium difficile infection is effective for treatment of recurrent CDI (Up-to-Date 2019) Blood in Stool or Rectal bleeding Possibilities for blood in stool or rectal bleeding may be related to hemorrhoids or an galileo fissures; but in some cases include larger colon polyps, diverticulitis, colitis, infectio us conditions such as Clostridium difficile associated diarrhea, inflammatory conditions (IB D) or obviously colon or rectal cancers among others. Direct visualization by colonoscopy clearly indicated at this point. CRC screening I discussed the rationale behind colon cancer screening trying to find polyps to prevent ca ncer from developing and obviously trying to find cancers at early treatable stage. Colonosc opy the more accurate study for evaluation which would allow removal of polyps at the same t guido. Will request prior endoscopy records. Recommend colonoscopy. Risks, benefits, and alternatives of the procedure were discussed in detail and patient is willing to proceed. Provided patient with handout on Procedure : Colonoscopy. Follow up recommendations pending procedure and biopsy reports. GERD: started on Omeprazole now as directed/side effects reviewed over with patient. Reasse ss at follow-up appointment. By symptoms you have described clearly indicates she has Gastroesophageal Reflux. No warnin g signs such as dysphagia, hematemesis or abdominal pain. Other possibilities could include ulcer disease, biliary disease or rarely neoplastic process among others. With duration of s ymptoms and nocturnal episodes at higher probability for Erosive esophagitis or potentially even Downs's esophagus. Goals of management of Gastroesophageal Reflux are reached with control of any potential in jury and control of symptoms. Should remain on PPI and/or H2 Corrie therapy at this point p er provider recommendations. I did discuss potential increased risk for bone fractures using this PPI therapy but agustinaen tly there is no strong evidence of impaired calcium absorption. Mechanism not clear or wheth er just a statistical association. Ongoing studies addressing this issue. Clearly benefits b y being on the medication is recommended: Calcium plus Vitamin D supplementation. EGD screen Recommend endoscopy only way to assess for this with explanation of risks, benefits, and al ternatives of the procedure were discussed in detail and patient is willing to proceed. Prov ided patient with handout on Procedure : endoscopy Follow up recommendations pending procedure and biopsy reports. CRC screening I discussed the rationale behind colon cancer screening trying to find polyps to prevent ca ncer from developing and obviously trying to find cancers at early treatable stage. Colonosc opy the more accurate study for evaluation which would allow removal of polyps at the same t guido. Will request prior endoscopy records. Recommend colonoscopy. Risks, benefits, and alternatives of the procedure were discussed in detail and patient is willing to proceed. Provided patient with handout on Procedure : Colonoscopy. Follow up recommendations pending procedure and biopsy reports. Patient would be appropriate for sedation with monitored anesthesia care give based on ASA III classification; past failed sedation, and due to co-morbidities Records Reviewed PCP chart notes form [facility] administration records to be scanned into record and previ ous [facility] records including Gastroenterology Procedures/Treatments/Imaging/Laboratory studi es have been reviewed (Using the electronic record system of [facility]). I caref ully reviewed the records with regard to the past medical/surgical history, previous medicat ions, and allergies). Nursing notes reviewed for chief complaint, medications, clinical pres entation and vital signs Total direct enqi-aw-rcxa time of 45minutes spent in reviewing information and discussion w ith greater than 50% of that time spent in counseling or coordinating of care. Thank you for allowing me KANE Basurto [facility] Gastroenterology [address] [place]. [address] to participate in the care of your patient. Please do not he sitate to call me with any questions or concerns. This report has been prepared using a voice recognition system called [employer]. The report wa s reviewed for accuracy, however, sound-alike word errors, addition and/or deletions may occ ur. If there is any question about this report please contact me. documented in this encounter Plan of Treatment + +------+--------+ + + | Name | Type | Priori | Associated Diagnoses | Order Schedule | | | | ty | | | + +------+--------+ + + | CBC with Manual | Lab | Routin | Change in | Every 6 months for 2 | | Differential | | e | consistency of stool | Occurrences | | | | | | starting 04/07/2019 | | | | | | until 10/05/2020, 1 | | | | | | completed | + +------+--------+ + + | Comprehensive | Lab | Routin | Change in | Every 6 months for 2 | | Metabolic Panel | | e | consistency of stool | Occurrences | | | | | | starting 04/07/2019 | | | | | | until 10/05/2020, 1 | | | | | | completed | + +------+--------+ + + documented as of this encounter Results Fecal leukocytes (04/08/2019 7:25 AM PDT) + [...] | | 1+Testing performed at | | [facility] | | | | TCL;[address] [facility] | | LABORATORY | | | | Blvd;[place] [address] | | | | | | | [...] + + + | REFERENCE LAB | [address] [place] [address] | [place] [address] | [phone] | | [facility] | Blvd. | | | | LABORATORY | | | | + + + + + | REFERENCE LAB | [address] [place] [address] | [place] [address] | | | [facility] | Blvd. | [...] | CONTACT THE MICRO LAB | | [facility] | | | | FOR SPECIAL TESTING. | | LABORATORY | | + + + + + + | RESULT | Testing performed at | | REFERENCE | | | | TCL;[address] | | LAB | | | | Blvd;[place] | | [facility] | | | | [id number]: Testing | | LABORATORY | | | | performed at TCL, [address] | [address], | | | | | | [place] [address] | | | | + + + + + + + + | Specimen | + + | Stool - Stool | | specimen (specimen) | + + + + + + + | Performing | Address | City/State/Zipcode | Phone Number | | Organization | | | | + + + + + | REFERENCE LAB | [address] [place] [address] | [place] [address] | [phone] | | [facility] | Blvd. | | | | LABORATORY | | | | + + + + + | REFERENCE LAB | [address] [place] [address] | [place] [address] | | | [facility] | Blvd. | | | | LABORATORY | | | | + + + + + Helicobacter [...] | | | STL | performed at [facility], [address] | | LAB | | | | [address] [facility] | | [facility] | | | | [place] [address] | | LABORATORY | | + + + + + + + + | Specimen | + + | Stool - Stool | | specimen (specimen) | + + + + + + + | Performing | Address | City/State/Zipcode | Phone Number | | Organization | | | | + + + + + | REFERENCE LAB | [address] [place] [address] | [place] [address] | [phone] | | [facility] | Blvd. | | | | LABORATORY | | | | + + + + + | REFERENCE LAB | [address] [place] [address] | [place] [address] | | | [facility] | Blvd. | [...] | [facility] | | | | TCL;[address] | | LABORATORY | | | | Blvd;[place] [address] | | | | + + + + + + + + | Specimen | + + | Stool - Stool | | specimen (specimen) | + + + + + + + | Performing | Address | City/State/Zipcode | Phone Number | | Organization | | | | + + + + + | REFERENCE LAB | [address] [place] [address] | [place] [address] | [phone] | | [facility] | Blvd. | | | | LABORATORY | | | | + + + + + | REFERENCE LAB | [address] [place] [address] | [place] [address] | | | [facility] | Blvd. | [...] REFERENCE | | | | performed at [facility];[address] | | LAB | | | | [address] | | [facility] | | | | Blvd;[place] [address] | | LABORATORY | | + + + + + + + + | Specimen | + + | Blood | + + + + + + + | Performing | Address | City/State/Zipcode | Phone Number | | Organization | | | | + + + + + | REFERENCE LAB | [address] [place] [address] | [place] [address] | [phone] | | [facility] | Blvd. | | | | LABORATORY | | | | + + + + + | REFERENCE LAB | [address] [place] [address] | [place] [address] | | | [facility] | Blvd. | [...] | | arie IgA | performed at [employer], | | LAB | | | | [address], | | [facility] | | | | [facility] [address] | | LABORATORY | | + + [...] [place] | | | | | | [place] | | | | | | [address] | | | | + + + + + + + + | Specimen | + + | Blood | + + + + + + + | Performing | Address | City/State/Zipcode | Phone Number | | Organization | | | | + + + + + | REFERENCE LAB | [address] | [place] [address] | [phone] | | [facility] | Blvd. | | | | LABORATORY | | | | + + + + + | REFERENCE LAB | [address] [facility] | [place] [address] | | | [facility] | Blvd. | [...] REFERENCE | | | | performed at [facility];[address] | | LAB | | | | [address] | | [facility] | | | | Blvd;[place] [address] | | LABORATORY | | + + + + + + + + | Specimen | + + | Blood | + + + + + + + | Performing | Address | City/State/Zipcode | Phone Number | | Organization | | | | + + + + + | REFERENCE LAB | [address] [facility] [address] | [place] [address] | [phone] | | [facility] | Blvd. | | | | LABORATORY | | | | + + + + + | REFERENCE LAB | [address] [facility] [address] | [place] [address] | | | [facility] | Blvd. | [...] | | | | | performed at [facility];[address] | | | | | | [facility] | | | | | | [facility];[place] [address] | | | | | | | | | | + + + + + + + + | Specimen | + + | Blood | + + + + + + + | Performing | Address | City/State/Zipcode | Phone Number | | Organization | | | | + + + + + | REFERENCE LAB | [address] [place] [address] | [place] [address] | [phone] | | [facility] | Blvd. | | | | LABORATORY | | | | + + + + + | REFERENCE LAB | [address] [place] [address] | [place] [address] | | | [facility] | Blvd. | [...] | | Testing performed at | | [facility] | | | | TCL;[address] [facility] | | LABORATORY | | | | Blvd;[place] [address] | | | | + + + + + + + + | Specimen | + + | Blood | + + + + + + + | Performing | Address | City/State/Zipcode | Phone Number | | Organization | | | | + + + + + | REFERENCE LAB | [address] [place], [place] [address]theresa | [place] [address] | [phone] | | [facility] | Blvd. | | | | LABORATORY | | | | + + + + + | REFERENCE LAB | [address] [place] [address] | [place] [address] | | | [facility] | Blvd. | | | | LABORATORY | | | | + + + + + documented in this encounter Visit Diagnoses + + | Diagnosis | + + | History of Clostridium difficile infection - Primary Personal history of other | | infectious and parasitic disease | + + | Change in consistency of stool | + + | Weight loss Loss of weight | + + | Heartburn | + + | Gastroesophageal reflux disease, esophagitis presence not specified | + + | Positive occult stool blood test Nonspecific abnormal finding in stool contents | + + documented in this encounter
--- OUTSIDE RECORDS SUMMARY | ~2019-07-01 | XMS | Encounter Summary ---
Demographics + + + | Address | [address] | | | [place] [address] | + + + | Home Phone | | + + + | Preferred Language | Unknown | + + + | Marital Status | | + + + | Christian Affiliation | Unknown | + + + | Race | Unknown | + + + | Ethnic Group | Unknown | + + + Author + + + | Author | [facility] | | | and [place] | + + + | Organization | [facility] | | | and [place] [...] Team Providers + +------+ + | Care Ripening Room Hand Name | Role | Phone | + [...] | | | | | | | NM | | | | | | | COLONOSCOPY | | | | | | | FLX DX | | | | | | | W/COLLJ SPEC | | | | | | | WHEN PFRMD | | | | | | | NM EGD | | | | | | | TRANSORAL | | | | | | | BIOPSY | | | | | | | SINGLE/MULTI | | | | | | | PLE NM | | | | | | | [...] +--------+--------+ + + + + Encounter Details +--------+---------+ + + + | Date | Type | Department | Care Team | Description | +--------+---------+ + + + | 06/02/ | Surgery | [facility] | Cesar Morelos | COLONOSCOPY W/ EGD | | 2019 | | [facility] | MD Allie [address] | | | | | [address] | [address] | | | | | BLVD [place], [place] | [place] [address] | | | | | [address] | [phone] | | | | | [phone] | | | +--------+---------+ + + + Social History [...] + + + documented in this encounter Medications at Time of Discharge + + + +---------+ + + | Medication | Sig | Dispensed | Refills | Start | End Date | | | | | | Date | | + + + +---------+ + + | ACIDOPHILUS | Take 1 capsule by | | 0 | 01/17/20 | | | LACTOBACILLUS PO | mouth 4 times daily | | | 19 | 0 | | | (with meals and | | | | | | | nightly). | | | | | + + + +---------+ + + | cetirizine | Take 10 mg by mouth | | 0 | 10/23/19 | | | (ZYRTEC) 10 mg | Daily as needed for | | | 19 | 0 | | tablet | Allergies. | | | | | + + + +---------+ + + | cholecalciferol | Take 1 tablet by | | 0 | 10/23/19 | | | (VITAMIN D-3) 2,000 | mouth Daily. | | | 19 | 0 | | units capsule | | | | | | + + + +---------+ + + | DULoxetine | Take 1 capsule by | | 0 | 10/23/19 | | | (CYMBALTA) [address] | mouth Daily. | | | 19 | 0 | | capsule | | | | | | + + + +---------+ + + | gabapentin | Take 300 mg by mouth | | 0 | 11/12/19 | | | (NEURONTIN) 300 mg | 3 times daily. | | | 19 | 0 | | capsule | | | | | | + + + +---------+ + + | loperamide | Take 1 capsule by | | 0 | 01/17/20 | | | (IMODIUM) 2 mg | mouth as needed for | | | 19 | 0 | | capsule | Diarrhea. Take after | | | | | | | each loose stool. | | | | | | | No more than 8 | | | | | | | capsules daily. | | | | | + + + +---------+ + + | mupirocin | 1 Application by | | 0 | 08/06/19 | | | (BACTROBAN) 2% | Nasal route 3 times | | | 19 | 0 | | ointment | daily as needed. In | | | | | | | left nostril for | | | | | | | infection | | | | | + + + +---------+ + + | omeprazole | Take 20 mg by mouth | | 0 | 04/07/20 | | | (PRILOSEC) 20 mg | every morning | | | 19 | 0 | | capsule | (before breakfast). | | | | | + + + +---------+ + + documented as of this encounter [...] Anesth | | | sohail | +---+--------+ documented in this encounter Results COLONOSCOPY (06/02/2019 7:41 AM PST) + + | Specimen | + + | | + + + + + | Narrative | Performed At | + + + | [facility] | INMT | | [facility] | [facility]OV[facility] | | CenterGI | | | Patient Name: Antonio Simpson Procedure | | | Date: 06/02/2019 7:41 AMMRN: [id number] | | | of : 1960 | [...] clinic. | | | | | | Cesar Morelos, 06/02/2019 7:59:50 AMThis | | | report has been signed electronically. Note Initiated On: 06/02/2019 | | | 7:41 AMNumber of Addenda: 0 [facility] - | | | Endoscopy Services | | | | | | | | | | | |Cesar Morelos, | | |06/02/2019 7:59:50 AM | | |This report has been signed electronically. | | | | | |Note Initiated On: 06/02/2019 7:41 AM | | |Number of Addenda: 0 | | | | | | [facility] - Endoscopy Services | | + + [...] | | | component was performed by [facility], [address] [place] [address] | | | [place] [address] (Junk Removal Specialist: Taya Levine MD; CLIA# | | | [id number]). Professional interpretation was performed by[facility] | | | [address], | | | [place] [address] (Junk Removal Specialist: Bayron Lewis M.D.; CLIA#: | | | [id number]). Diagnostician: Taya Levine | | | MDPathologistElectronically Signed 06/03/2019 | | | | | |PERFORMING LABORATORY: | | |The technical component was performed by [facility], [address] [place] [address] (Junk Removal Specialist: Taya Levine MD; CLIA# [id number]). Professional interpretation was performed by | | |[facility], [address] (Junk Removal Specialist: Bayron Lewis M.D.; CLIA#: [id number]). | | | | | |Diagnostician: Taya [...] Performed At | + + + | [facility] | [facility] | | [facility] | PROVATION | | CenterGI | | | Patient Name: Antonio Simpson Procedure | | | Date: 06/02/2019 7:27 AMMRN: [id number] | | | of : 1960 | [...] | | Cesar Kelley | | | Tamy, 06/02/2019 7:39:32 AMThis report has been signed | | | electronically. Note Initiated On: 06/02/2019 7:27 AMNumber of Addenda: | | | 0 [facility] - Endoscopy Services | | | | | | | | |Cesar Morelos, | | |06/02/2019 7:39:32 AM | | |This report has been signed electronically. | | | | | |Note Initiated On: 06/02/2019 7:27 AM | | |Number of Addenda: 0 | | | | | | [facility] - Endoscopy Services | | + + + + +---------+ + + | Performing | Address | City/State/Zipcode | Phone Number | | Organization | | | | + +---------+ + + | [facility] | | | | + +---------+ + + documented in this encounter Visit Diagnoses + + | Diagnosis | + + | History of Clostridium difficile infection Personal history of other infectious and | | parasitic disease | + + | Change in consistency of stool | + + | Gastroesophageal reflux disease, esophagitis presence not specified | + + | Positive occult stool blood test Nonspecific abnormal finding in stool contents | + + | Heartburn | + + | Weight loss Loss of weight | + + documented in this encounter Admitting Diagnoses + + | Diagnosis | + + | History of Clostridium difficile infection Personal history of other infectious and | | parasitic disease | + + | Change in consistency of stool | + + | Gastroesophageal reflux disease, esophagitis presence not specified | + + | Positive occult stool blood test Nonspecific abnormal finding in stool contents | + + | Heartburn | + + | Weight loss Loss of weight | + + documented in this encounter Administered Medications + + + +------+------+------+ | Medication Order | MAR | Action | Dose | Rate | Site | | | Action | Date | | | | + + + +------+------+------+ | sodium chloride 0.9% (NS) | Continue | 06/02/20 | | | | | infusion at 100 mL/hr, | d by | 19 7:25 | | | | | Intravenous, CONTINUOUS, Starting | Anesthes | AM PST | | | | | 06/02/19 at 0700, Pre-op | ia | | | | | + + + +------+------+------+ +---------+ +---+-------+---+ | New Bag | 06/02/20 | | 100 | | | | 19 7:20 | | mL/hr | | | | AM PST | | | | +---------+ +---+-------+---+ +---+---+ | | | +---+---+ documented in this encounter
--- OUTSIDE RECORDS SUMMARY | ~2019-07-01 | XMS | Encounter Summary ---
Demographics + + + | Address | [address] | | | [place] [address] | + + + | Home Phone | | + + + | Preferred Language | Unknown | + + + | Marital Status | | + + + | Rastafari Affiliation | Unknown | + + + | Race | Unknown | + + + | Ethnic Group | Unknown | + + + Author + + + | Author | [facility] | | | and [place] | + + + | Organization | [facility] | | | and [...] Team Providers + +------+ + | Care Perl Software Engineer Name | Role | Phone | + +------+ + | Ihsan Umaña MD | PCP | | + +------+ + Reason for Referral Diagnostic/Screening (Routine) +--------+--------+ + + + + | Status | Reason | Specialty | Diagnoses / | Referred By | Referred To | | | | | Procedures | Contact | Contact | +--------+--------+ + + + + | Closed | | | Diagnoses | Salina Melo | | | | | Lumbar | Gladis | [facility] | | | | | spondylosis | ARYA Olivares | [address] | | | | | History of | [address] | | | | | lumbar | [address] | [place], [place] | | | | | discectomy | STREET | [address] | | | | | Chronic | [address] | Phone: | | | | | bilateral | [place], | [phone] | | | | | low back | [place] [address] | Fax: | | | | | pain, | Phone: | [phone] | | | | | unspecified | [phone] | | | | | | whether | Fax: | | | | | | sciatica | [phone] | | | | | | present | | | | | | | Spondylolist | | | | | | | hesis at | | | | | | | L5-S1 level | | | | | | | Procedures | | | | | | | MRI Lumbar | | | | | | | Spine wo | | | | | | | Contrast | | | +--------+--------+ + + + + Reason for Visit + + + | Reason | Comments | + + + | New Patient | lumbar radiculopathy, images ([facility]) | + + + Evaluate & Treat (Routine) +--------+--------+ + + + + | Status | Reason | Specialty | Diagnoses / | Referred By | Referred To | | | | | Procedures | Contact | Contact | +--------+--------+ + + + + | Closed | | Physical | Diagnoses | Leeroy, | Jolanta, | | | | Medicine and | | Ihsan | Tyler Rivers MD | | | | Rehabilitatio | Radiculopath | MD Michael | [address] | | | | n | y, lumbar | [address] | | | | | region | [place] | [place] | | | | | | [address] | [address] Phone: | | | | | | [place] | [phone] | | | | | | [address] | Fax: | | | | | | Phone: | [phone] | | | | | | [phone] | | | | | | | Fax: | | | | | | | [phone] | | +--------+--------+ + + + + Encounter Details +--------+---------+ + + + | Date | Type | Department | Care Team | Description | +--------+---------+ + + + | 05/09/ | Office | [facility] | Gladis Melo | Lumbar spondylosis | | 2019 | Visit | PHYSIATRY [address] | ARYA Olivares [address] | (Primary Dx); | | | | [place], | [address] | History of lumbar | | | | [place] [address] | [address] [place], [place] | discectomy; Chronic | | | | [phone] | [address] | bilateral low back | | | | | | pain, unspecified | | | | | | whether sciatica | | | | | | present; | | | | | | Spondylolisthesis at | | | | | | L5-S1 level | +--------+---------+ + + + Social History [...] + + + | Blood Pressure | 140/76 | 05/09/2019 9:01 AM | | | | | PDT | | + + + + + | Pulse | 82 | 05/09/2019 9:01 AM | | | | | PDT [...] | Weight | 98.6 kg (217 lb 6 | 05/09/2019 9:01 AM | | | | oz) | PDT | | + + + + + | Height | 185.4 cm (6' 0.99") | 05/09/2019 9:01 AM | | | | | PDT | | + + + + + | Body Mass Index | 28.69 | 05/09/2019 9:01 AM | | | | | PDT | | + + + + + documented in this encounter Patient Instructions Patient Instructions Gladis Melo PA-C - 05/09/2019 9:20 AM PDT1. We will obtai n records of your prior RFA procedure and schedule a repeat procedure as soon as records are received. 2. An updated MRI has been requested due to persistent severe low back pain, right leg kelsey n and weakness. T documented in this encounter Progress Notes Gladis Melo PA-C - 05/09/2019 9:20 AM PDTFormatting of this note might be diffe rent from the original. Ledy Melo PA-C [address] [place] [address] PHONE: FAX: PHYSIATRY HISTORY AND PHYSICAL EXAMINATION CHIEF COMPLAINT: Chief Complaint Patient presents with New Patient lumbar radiculopathy, images ([facility]) HISTORY OF PRESENT ILLNESS: The patient is a 58 y.o. male with the complaint of back sympt oms that began 2009. The patient describes symptom onset following no inciting event. The symptoms have been gradually worsening and becoming weaker. He reports a history of discect amparo and previous pain management injections. Reports prior epidural steroid injections only helped for a couple days. He has had successful RFA most recent May 2018 which provid ed him about 6 months of relief. His pain is now recurred in his low back and he would like to discuss repeat RFA. He rates the pain as severe. The symptoms are daily, continuous. He describes the pain as numbing, sharp, shooting and throbbing. The patient describes leg symptoms that occur on right side. The leg symptoms account for greater than or equal to 50% of his symptoms. The leg symptoms are constant and the symptom s travels from the lower back to foot and S1 dermatome. The patient also describes that he has neuropathy. The patient does not report any change in bowel or bladder function recently. His symptoms improve with nothing. His symptoms worsen with rest, changing position, standing, sitting, walking, running, knee ling, bending and twisting. He has tried PT, Massage, TENS, NSAIDS, Steroids, Injections and Muscle relaxers. . PAST MEDICAL HISTORY: Past Medical History: Diagnosis Date Alcohol abuse Anxiety Arthritis Bipolar disorder (HCC) Chronic pain Clear cell carcinoma of left kidney (HCC) Clostridium difficile colitis 05/09/2019 Cyst of right kidney DDD (degenerative disc disease), lumbar Depression Diverticulosis Gastroesophageal reflux disease, esophagitis presence not specified 04/07/2019 High cholesterol History of Clostridium difficile infection Hypercholesteremia Hypertension Migraine Personal history of kidney cancer 10/02/2018 left kidney PTSD (post-traumatic stress disorder) Radiculopathy, lumbar region Renal mass Right knee pain Tobacco abuse Torn meniscus PAST SURGICAL HISTORY: Past Surgical History: Procedure Laterality Date FRACTURE SURGERY 2016 INCISION AND DRAINAGE Right 2016 Big toe; Surgeon: Jacqueline Howard MD Location: [facility] OR KIDNEY REMOVAL Left 10/02/2018 Procedure: Laparoscopic Radical Nephrectomy; Surgeon: Sudeep Cardoso MD Location: [facility] [place] [facility]; Service: Urology Laterality: Left KNEE ARTHROSCOPY Left LUMBAR DISCECTOMY 05/2018 Microdiscectomy SHOULDER ARTHROSCOPY Right CURRENT MEDICATIONS: Current Outpatient Medications Medication Sig Dispense Refill ACIDOPHILUS LACTOBACILLUS PO Take 1 capsule by mouth 4 times daily (with meals and nigh tly). cetirizine (ZYRTEC) 10 mg tablet Take 10 mg by mouth Daily as needed for Allergies. cholecalciferol (VITAMIN D-3) 2,000 units capsule Take 1 tablet by mouth Daily. DULoxetine (CYMBALTA) [address] capsule Take 1 capsule by mouth Daily. gabapentin (NEURONTIN) 300 mg capsule Take 300 mg by mouth 3 times daily. gabapentin (NEURONTIN) 300 mg capsule Take 300 mg by mouth 3 times daily. loperamide (IMODIUM) 2 mg capsule Take 1 capsule by mouth as needed for Diarrhea. Take after each loose stool. No more than 8 capsules daily. mupirocin (BACTROBAN) 2% ointment 1 Application by Nasal route 3 times daily as needed. In left nostril for infection omeprazole (PRILOSEC) 20 mg capsule Take 20 mg by mouth every morning (before breakfast ). No current facility-administered medications for this visit. ALLERGIES: No Known Allergies SOCIAL HISTORY: The patient reports that he has been smoking cigarettes. He started smoking about 23 year s ago. He has a 23.00 pack-year smoking history. He has never used smokeless tobacco. He rep orts that he drinks alcohol. He reports that he has current or past drug history. FAMILY HISTORY: Family History Problem Relation Age of Onset Arthritis Mother Asthma Mother Heart disease Mother High blood pressure Mother Hypertension Mother Osteoarthritis Mother Parkinsonism Mother Alcohol abuse Father Arthritis Father Cancer Father Heart attack Father Hypertension Father Stroke Father No known problems Sister Heart disease Brother Kidney cancer Brother Lupus Other Depression Brother Mental illness Brother Suicide Brother No known problems Other Colon cancer Neg Hx Crohn's disease Neg Hx Colon polyps Neg Hx REVIEW OF SYSTEMS: GENERALLY: No fever, + night sweats, no anemia, no fatigue, + recent profound weight howe ges. EYES: No eye problems, no impaired sight, + use of corrective lenses, no eye injury, no do uble vision, no transient blindness. EARS, NOSE, AND THROAT: No changes in taste or smell, no hearing difficulty, no ringing in the ears, no ear drainage, no ear injury, no dizziness, no voice changes, no difficulty swa llowing, no significant snoring, no sleep apnea/CPAP, no sinus problems, no major dental wor k. NEUROLOGICALLY: Please see the review of systems discussed above in the history of present illness. In addition, He has numbness/pain of legs, awake with numbness/pain, weakness, mu scle aching, change in walk, back injury, pain in back, migraine. PSYCHIATRIC: + depression, + difficulty sleeping, + anxiety, + bipolar disorder. CARDIOVASCULAR: No heart attacks, no heart murmur, no heart fluttering, no chest pain, no ankle swelling. LUNG DISEASE: No shortness of breath, no cough, no tuberculosis, no bloody cough, no asthm a, no emphysema/COPD. GASTROINTESTINAL: No bowel disease, no nausea or vomiting, no rectal bleeding, no constipa tion, no fecal stool incontinence, no liver/gallbladder disease, no abdominal pain, no ulcer s. KIDNEY DISEASE: No urinary frequency, no painful or difficult urination, no urinary incont inence, no bladder problems, no impotence. ENDOCRINE: No diabetes, no thyroid disease, no osteopenia or osteoporosis, no breast drain age. SKIN: No breast lumps, no skin disease or skin changes, no rashes/itches. HEMATOLOGIC/LYMPHATIC: No enlarged lymph nodes, no easy or unusual bleeding, no personal h istory of cancer. RHEUMATOLOGIC: + joint pain/arthritis, no rheumatoid arthritis. PHYSICAL EXAMINATION: Blood pressure 140/76, pulse 82, height 1.854 m (6' 0.99"), weight 98.6 kg (217 lb 6 oz). B josh mass index is 28.69 kg/m. GENERAL: Antonio Simpson is in no acute distress with unlabored respirations. He does n ot appear uncomfortable throughout the exam today. HEENT: Head: Normocephalic/atraumatic with no areas of recent trauma. Eyes: Normal sclerae without icterus. Ears: No drainage or tenderness. Nasopharynx: Clear without drainage. Oropharynx: Clear without erythema. NECK (ANTERIOR): Supple and without palpable masses. CHEST: Unlabored respirations HEART: No lower extremity edema ABDOMEN: Soft, non-tender, non-distended, and without palpable masses. The patient is not obese. NEUROLOGICAL: The patient is awake, alert, and oriented to time, place, person. He follows simple and complex commands. His speech is fluent. He comprehends speech well. He has no apparent deficits with short or terminologist memory. Cranial nerves 2-12 appear grossly intact. Sensory exam does show diminished sensation to light touch in the right lower extremity EXTREMITIES: No cyanosis, clubbing, or edema. Distal pulses are palpable. PHYSICAL EXAM: MENTAL STATUS: He is awake, alert, and oriented. He follows simple and complex commands. His speech is fluent, he comprehends speech well, and he repeats well. He has no apparent deficits with short or prison memory. CRANIAL NERVES: II: Acuity is intact. Whitlock are full to confrontation. III, IV, : The pupils are reactive. Extraocular movements are intact. No ptosis is note d. V: Facial sensation is intact and symmetric. VII: Facial movements are symmetric. VIII: Hearing is intact bilaterally. IX, X: The uvula and palate move appropriately. XI: Shrug is equal bilaterally. XII: Tongue protrusion is midline. MOTOR EXAM: (5 IS NORMAL) * Indicates pain limited MUSCLE/ MOVEMENT: RIGHT LEFT Hip Flexion 5 5 Hip Extension 5 5 Knee Flexion 5 5 Knee Extension 5 5 Dorsiflexion 4+ 5 Extensor Hallicus Longus 4+ 5 Plantarflexion 4+ 5 REFLEXES: (2 OR 2+ IS NORMAL) REFLEX: RIGHT LEFT PATELLAR 2 2 ACHILLES 2 2 GAIT: Gait is steady. Patient is unable to tiptoe walk with a history of fusion right toe. Jessica ent can balance on heels but with difficulty. Lumbar flexion demonstrated without complaint s. Lumbar extension reproduces his pain. He has positive facet loading at L3-4 L4-5 and L5 -S1 bilateral PERIPHERAL NERVE/MISC: Straight leg raise is positive right. Jesus's test of the hips is negative bilaterally. TEST AND RADIOGRAPHIC REVIEW: I have reviewed records and do not see any MRI imaging of the low back. Lumbar x-rays from [id number] shows spondylolisthesis at L5-S1 stable on flexion extension v iews. ASSESSMENT: NEUROSURGICAL DIAGNOSES: Encounter Diagnoses Name Primary? Lumbar spondylosis Yes History of lumbar discectomy Chronic bilateral low back pain, unspecified whether sciatica present Spondylolisthesis at L5-S1 level GENERAL DIAGNOSES: Past Medical History: Diagnosis Date Alcohol abuse Anxiety Arthritis Bipolar disorder (HCC) Chronic pain Clear cell carcinoma of left kidney (HCC) Clostridium difficile colitis 05/09/2019 Cyst of right kidney DDD (degenerative disc disease), lumbar Depression Diverticulosis Gastroesophageal reflux disease, esophagitis presence not specified 04/07/2019 High cholesterol History of Clostridium difficile infection Hypercholesteremia Hypertension Migraine Personal history of kidney cancer 10/02/2018 left kidney PTSD (post-traumatic stress disorder) Radiculopathy, lumbar region Renal mass Right knee pain Tobacco abuse Torn meniscus PLAN: Antonio Simpson presented today, and it was a pleasure seeing this patient and assessing his problems. 1) Today we discussed the patient's differential diagnosis with the likely primary issue be ing LUMBAR spondylosis at L3-S1 bilateral. Patient's description of symptoms, physical exam, and imaging suggest this diagnosis at this time. Patient has had prior RFA successfully th e most recent of which was May 2018 with 85% reduction in pain for 6 months. He presen ts today as a new patient requesting repeat RFA. 2) I counseled patient on treatment options which included conservative self management usi ng OTC NSAIDs/Ice and heat packs, physical therapy, prescription medications, epidural stero id injection, neuromodulation therapies, as well as possible surgical intervention. 3) Imaging: As descibed above in radiology review. Lumbar MRI was ordered to assess lumbar spine for herniation, disc pathology, and/or nerve root impingement that may be contributing to patient's symptoms. 4) The patient has had significant conservative care including medications (NSAIDS and narc otics), PT (multiple sessions over the years) and career services assistant. Unfortunately Antonio Simpson continues to have significant discomfort. It appears to me that the pain is prima rily coming from lower lumbar spondylosis with L5-S1 spondylolisthesis I did feel that Antonio Simpson would be a good candidate for interventional procedur es and I offered a RFA of L3-S1 bilateral pending verification o procedure note of prior RFA from [facility] in [place], [place] to be done. 5) Patient will follow up with me the day of procedure for same-day H&P. At that time it w ould be appropriate to show him his MRI images. Otherwise the results will be called to him with treatment recommendations for additional back and leg weakness concerns. I spent 30 minutes in visit with Antonio Simpson today with the majority of time spent c ounselling the patient on his diagnosis, options for his care, and coordinating his care. 05/09/19 ELECTRONICALLY SIGNED BY: Ledy Melo PA-C, 05/09/2019 9:44 documented in this encounter Plan of Treatment + +---------+--------+ + + | Name | Type | Priori | Associated Diagnoses | Order Schedule | | | | ty | | | + +---------+--------+ + + | MRI Lumbar Spine wo | Imaging | Routin | Lumbar spondylosis | Expected: | | Contrast | | e | History of lumbar | 05/09/2019, Expires: | | | | | discectomy Chronic | 05/09/2020 | | | | | bilateral low back | | | | | | pain, unspecified | | | | | | whether sciatica | | | | | | present | | | | | | Spondylolisthesis at | | | | | | L5-S1 level | | + +---------+--------+ + + documented as of this encounter Procedures + +--------+ + + + | Procedure Name | Priori | Date/Time | Associated Diagnosis | Comments | | | ty | | | | + +--------+ + + + | IMAGING REPORT - | | 05/07/2018 | | Results for this | | EXTERNAL SCAN | | 12:00 AM | | procedure are in the | | | | PDT | | results section. | + +--------+ + + + documented in this encounter Results IMAGING REPORT - EXTERNAL SCAN (05/07/2018 12:00 AM PDT) + + + | Narrative | Performed At | + + + | Ordered by an | | | unspecified provider. | | + + + documented in this encounter Visit Diagnoses + + | Diagnosis | + + | Lumbar spondylosis - Primary Lumbosacral spondylosis without myelopathy | + + | History of lumbar discectomy Personal history of surgery to other organs | + + | Chronic bilateral low back pain, unspecified whether sciatica present | + + | Spondylolisthesis at L5-S1 level | + + documented in this encounter
--- OUTSIDE RECORDS SUMMARY | ~2019-07-01 | XMS | Encounter Summary ---
Demographics + + + | Address | [address] | | | [place] [address] | + + + | Home Phone | | + + + | Preferred Language | Unknown | + + + | Marital Status | | + + + | Jew Affiliation | Unknown | + + + | Race | Unknown | + + + | Ethnic Group | Unknown | + + + Author + + + | Author | [facility] | | | and [place] | + + + | Organization | [facility] | | | and [...] Team Providers + +------+ + | Care Diesel Machinist Name | Role | Phone | + +------+ + | Ihsan Umaña MD | PCP | | + +------+ + Encounter Details +--------+ + + + + | Date | Type | Department | Care Team | Description | +--------+ + + + + | 04/07/ | Orders Only | [facility] | Gretchen Montano | Change in | | 2019 | | [address] | Mike, [employer]otive Tire Worker | consistency of stool | | | | [place] | | | | | | [address] | | | | | | [phone] | | | +--------+ + + + [...] + + documented in this encounter Results CBC with Manual Differential (04/07/2019 10:01 AM [...] | | Testing performed at | | [employer] | | | | TCL;[address] | | LABORATORY | | | | [address];[place] [address] | | | | + + + + + + + + | Specimen | + + | Blood | + + + + + + + | Performing | Address | City/State/Zipcode | Phone Number | | Organization | | | | + + + + + | REFERENCE LAB | [address] | [place] [address] | [phone] | | [facility] | Blvd. | | | | LABORATORY | | | | + + + + + | REFERENCE LAB | [address] | [place] [address] | | | [facility] | Blvd. | [...] | | | | | | [facility] traceable | | | | | | equation.Testing | | | | | | performed at [facility];[address] | | | | | | [place] | | | | | | [facility];[place] [address] | | | | | | | | | | + + + + + + + + | Specimen | + + | Blood | + + + + + + + | Performing | Address | City/State/Zipcode | Phone Number | | Organization | | | | + + + + + | REFERENCE LAB | [address] [place] [address] | [place] [address] | [phone] | | [facility] | Blvd. | | | | LABORATORY | | | | + + + + + | REFERENCE LAB | [address] [place] [address] | [place] [address] | | | [facility] | Blvd. | [...] REFERENCE | | | | performed at [facility];[address] | | LAB | | | | [place] | | [facility] | | | | Blvd;[place] [address] | | LABORATORY | | + + + + + + + + | Specimen | + + | Blood | + + + + + + + | Performing | Address | City/State/Zipcode | Phone Number | | Organization | | | | + + + + + | REFERENCE LAB | [address] | [place] [address] | [phone] | | [facility] | Blvd. | | | | LABORATORY | | | | + + + + + | REFERENCE LAB | [address] [place], [place] [address] | [place] [address] | | | [facility] | Blvd. | [...] | | arie IgA | performed at [facility], | | LAB | | | | [address], [address], | | [facility] | | | | [facility] [address] | | LABORATORY | | + + [...] at | | | | | | [place], [address] | | | | | | [place] | | | | | | [address] | | | | + + + + + + + + | Specimen | + + | Blood | + + + + + + + | Performing | Address | City/State/Zipcode | Phone Number | | Organization | | | | + + + + + | REFERENCE LAB | [address] | [place] [address] | [phone] | | [facility] | Blvd. | | | | LABORATORY | | | | + + + + + | REFERENCE LAB | [address] | [place] [address] | | | [facility] | Blvd. | [...] REFERENCE | | | | performed at [facility];[address] | | LAB | | | | [place] | | [facility] | | | | Blvd;[place] [address] | | LABORATORY | | + + + + + + + + | Specimen | + + | Blood | + + + + + + + | Performing | Address | City/State/Zipcode | Phone Number | | Organization | | | | + + + + + | REFERENCE LAB | [address] [place] [address] | [place] [id number] | [phone] | | [facility] | Blvd. | | | | LABORATORY | | | | + + + + + | REFERENCE LAB | [address] [place] [address] | [place] [address] | | | [facility] | Blvd. | | | | LABORATORY | | | | + + + + + documented in this encounter Visit Diagnoses + + | Diagnosis | + + | Change in consistency of stool | + + documented in this encounter"
--- OUTSIDE RECORDS SUMMARY | ~2019-07-01 | XMS | Encounter Summary ---
Demographics + + + | Address | [address] | | | [place] [address] | + + + | Home Phone | | + + + | Preferred Language | Unknown | + + + | Marital Status | | + + + | Amish Affiliation | Unknown | + + + | Race | Unknown | + + + | Ethnic Group | Unknown | + + + Author + + + | Author | [facility] | | | and [place] | + + + | Organization | [facility] | | | and [place] [...] Team Providers + +------+ + | Care Carpenter Assembler Name | Role | Phone | + +------+ + | Ihsan Umaña MD | PCP | | + +------+ + Encounter Details +--------+ + + + + | Date | Type | Department | Care Team | Description | +--------+ + + + + | 05/01/ | Imaging | [facility] | Provider, | | | 2019 | Exam | [facility] | [address] | | | | | IMAGING | [address] | | | | | [phone] | [place] [address] | | +--------+ + + + + Social History + +-------+ +--------+------+ | Tobacco Use | Types | Packs/Day | Years | Date | | | | | Used | | + +-------+ +--------+------+ | Never Assessed | | | | | + +-------+ +--------+------+ + + + | Sex Assigned at [...] | + +--------+ + + + | XR LUMBAR SPINE 2 OR | Routin | 05/20/2018 | | Results for this | | 3 VW | e | 12:00 AM | | procedure are in the | | | | PDT | | results section. | + +--------+ + + + documented in this encounter Results XR Lumbar Spine 2 or 3 Vw (05/20/2018 12:00 AM PDT) + + | Specimen | + + [...]
--- OUTSIDE RECORDS SUMMARY | ~2019-07-01 | XMS | Encounter Summary ---
Demographics + + + | Address | [address] | | | [place] [address] | + + + | Home Phone | | + + + | Preferred Language | Unknown | + + + | Marital Status | | + + + | Voodoo Affiliation | Unknown | + + + | Race | Unknown | + + + | Ethnic Group | Unknown | + + + Author + + + | Author | [facility] | | | and [place] | + + + | Organization | [facility] | | | and [place] [...] Team Providers + +------+ + | Care Airline Transport Pilot Name | Role | Phone | + +------+ + | Ihsan Umaña MD | PCP | | + +------+ + Reason for Visit +---------+ + | Reason | Comments | +---------+ + | Results | Lab work | +---------+ + Encounter Details +--------+ + + + + | Date | Type | Department | Care Team | Description | +--------+ + + + + | 04/15/ | Telephone | [facility] | Christie Red Miguel, | Results (Lab work ) | | 2019 | | GASTROENTEROLOGY | [facility] | | | | | [address] | | | | | | [place] | | | | | | [address] | | | | | | [phone] | | | +--------+ + + + [...]
--- OUTSIDE RECORDS SUMMARY | ~2019-07-01 | XMS | Encounter Summary ---
Demographics + + + | Address | [address] | | | [place] [address] | + + + | Home Phone | | + + + | Preferred Language | Unknown | + + + | Marital Status | | + + + | Mosque Affiliation | Unknown | + + + | Race | Unknown | + + + | Ethnic Group | Unknown | + + + Author + + + | Author | [facility] | | | and [place] | + + + | Organization | [facility] | | | and [place] [...] Team Providers + +------+ + | Care Dragger Name | Role | Phone | + +------+ + | hIsan Umaña MD | PCP | | + [...] + + | 06/02/ | Hospital | [facility] | Cesar Morelos | History of | | 2019 | Encounter | [facility] | MD Allie [address] | Clostridium | | | | INTRA OP [address] | [address] | difficile infection; | | | | BLVD [place], [place] | [place] [address] | Change in | | | | [address] | [phone] | consistency of | | | | [phone] | | stool; | | | | [...] loss | +--------+ + + + + Social [...] Performed At | + + + | [facility] | [place] | | [facility] | PROVATION | | [facility] | | | Patient Name: Antonio Simpsony Procedure | | | Date: 06/02/2019 7:41 AMMRN: [id number] | | | of : 1960 | [...] | | 7:41 AMNumber of Addenda: 0 [facility] - | | | Endoscopy Services | | | | | | | | | | | |Cesar Morelos, | | |06/02/2019 7:59:50 AM | | |This report has been signed electronically. | | | | | |Note Initiated On: 06/02/2019 7:41 AM | | |Number of Addenda: 0 | | | | | | [facility] | | + [...] | | | component was performed by [facility], [address] [place] [address], | | | [place] [address] (Ore Digger: Taya Levine MD; CLIA# | | | [id number]). Professional interpretation was performed [facility] | | [facility], [address], | | | [place] [address] (Ore Digger: Bayron Lewis M.D.; CLIA#: | | | [id number]). Diagnostician: Taya Levine | | | MDPathologistElectronically Signed 06/03/2019 | | | | | |PERFORMING LABORATORY: | | |The technical component was performed by [facility], [address] [place] [address] (Ore Digger: Taya Levine MD; CLIA# [id number]). Professional interpretation was performed by | | |[facility], [facility], [address] [place] [id number] (Ore Digger: Bayron Lewis M.D.; CLIA#: [id number]). | | | | | |Diagnostician: Taya [...] Performed At | + + + | [facility] | [place] | | [facility] | PROVATION | | Center[facility] | | | Patient Name: Antonio Simpson Procedure | | | Date: 06/02/2019 7:27 AMMRN: [id number] | | | of : 1960 | [...] AMNumber of Addenda: | | | 0 [facility] | | | | | | | | |Cesar Morelos, | | |06/02/2019 7:39:32 AM | | |This report has been signed electronically. | | | | | |Note Initiated On: 06/02/2019 7:27 AM | | |Number of Addenda: 0 | | | | | | [facility] | | + + + + +---------+ + + | Performing | Address | [facility] | Phone Number | | Organization | [...]
--- OUTSIDE RECORDS SUMMARY | ~2019-07-01 | XMS | Encounter Summary ---
Demographics + + + | Address | [address] | | | [place] [address] | + + + | Home Phone | | + + + | Preferred Language | Unknown | + + + | Marital Status | | + + + | Sabianism Affiliation | Unknown | + + + | Race | Unknown | + + + | Ethnic Group | Unknown | + + + Author + + + | Author | [facility] | | | and [place] | + + + | Organization | [facility] | | | and [...] Team Providers + +------+ + | Care Miller Helper Distillery Name | Role | Phone | + +------+ + | Ihsan Umaña MD | PCP | | + +------+ + Encounter Details +--------+ + + + + | Date | Type | Department | Care Team | Description | +--------+ + + + + | 04/08/ | Orders Only | [facility] | Yaima Sotelo | Change in | | 2018 | | [address] | Y, Tug Boat Engineer | consistency of | | | | [place] | | stool; Heartburn; | | | | [address] | | Gastroesophageal | | | | [phone] | | reflux disease, | | | | | | esophagitis presence | | | | | | not specified; | | | | | | History of | | | | | | Clostridium | | | | | | difficile infection | +--------+ + + + + Social [...] + + documented in this encounter Results Fecal leukocytes (04/08/2019 7:25 [...] | | 1+Testing performed at | | [facility] | | | | TCL;[address] [facility] | | LABORATORY | | | | Blvd;[place] [address] | | | | | | | [...] + + + | REFERENCE LAB | [address] [place] [address] | [place] [address] | [phone] | | [facility] | Blvd. | | | | LABORATORY | | | | + + + + + | REFERENCE LAB | [address] [place] [address] | [place] [address] | | | [facility] | Blvd. | [...] | [facility] | | | | TCL;[address] [facility] | | LABORATORY | | | | Blvd;[place] [address] | | | | + + + + + + + + | Specimen | + + | Stool - Stool | | specimen (specimen) | + + + + + + + | Performing | Address | City/State/Zipcode | Phone Number | | Organization | | | | + + + + + | REFERENCE LAB | [address] [facility] | [place] [address] | [phone] | | [facility] | Blvd. | | | | LABORATORY | | | | + + + + + | REFERENCE LAB | [address] [facility] | [place] [address] | | | [facility] | Blvd. | [...] | | | STL | performed at [facility], [address] | | LAB | | | | [address] [facility] | | [facility] | | | | [place] [address] | | LABORATORY | | + + + + + + + + | Specimen | + + | Stool - Stool | | specimen (specimen) | + + + + + + + | Performing | Address | City/State/Zipcode | Phone Number | | Organization | | | | + + + + + | REFERENCE LAB | [address] [place], [place] [address]the[place] | [place] [address] | [phone] | | [facility] | Blvd. | | | | LABORATORY | | | | + + + + + | REFERENCE LAB | [address] [place] [address] | [place] [address] | | | [facility] | Blvd. | [...] | | REFERENCE | | | | TCL;[address] | | LAB | | | | [place] | | [facility] | | | | [id number]: Testing | | LABORATORY | | | | performed at [facility], [address] | | | | | [address], | | | | | | [place] [address] | | | | + + + + + + + + | Specimen | + + | Stool - Stool | | specimen (specimen) | + + + + + + + | Performing | Address | City/State/Zipcode | Phone Number | | Organization | | | | + + + + + | REFERENCE LAB | [address] | [place] [address] | [phone] | | [facility] | Blvd. | | | | LABORATORY | | | | + + + + + | [facility] | [address] | [place] [address] | | | [facility] | Blvd. | | | | LABORATORY | | | | + + + + + documented in this encounter Visit Diagnoses + + | Diagnosis | + + | Change in consistency of stool | + + | Heartburn | + + | Gastroesophageal reflux disease, esophagitis presence not specified | + + | History of Clostridium difficile infection Personal history of other infectious and | | parasitic disease | + + documented in this encounter"
[~2019-07-01 17:45] MED LIST: DICLOFENAC SODI75 MG PO; GABAPENTIN300 MG PO; HYDROCODON-ACE1 EA11 PO
--- OUTSIDE RECORDS SUMMARY | 2019-07-01 17:48 | XMS ---
PreManage Notification: STIVEN MORALES Security Senior Data Scientist Events No recent Security Events currently on file CRITERIA MET - [facility] PROVIDERS CHAD CLARK Primary [facility] Current PHONE: Unknown Ben has no Care Guidelines for this patient. E.D. VISIT COUNT ([address] [facility] TOTAL 5 NOTE: Visits indicate total known visits. ED/UCC VISIT TRACKING (12 MO.) 07/01/2019 17:[address] [facility] TYPE: Emergency COMPLAINT: - COUGH, CHILLS, HEADACHE [facility] [facility] DIAGNOSES: - Abdominal pain - Unspecified abdominal pain 12[facility]17[facility]2018 [facility] [place] [facility] DIAGNOSES: - Unspecified abdominal pain - abdominal pain - Diarrhea, unspecified 11/13/2018 [facility] [place] [facility] DIAGNOSES: - Abdominal Pain; Prior Surgery - Unspecified abdominal pain - Diarrhea, unspecified - Abdominal Pain 09/12/2018 12:40 [facility] [place] TYPE: Emergency DIAGNOSES: - Left knee pain - Knee Injury - Unspecified dislocation of right knee, initial encounter INPATIENT VISIT TRACKING (12 MO.) 10/02/2018 05:16 [facility] TYPE: Post Surgical DIAGNOSES: - Other specified disorders of kidney and ureter - Malignant neoplasm of left kidney, except renal pelvis [id number]
== END 2019-07-01 22:11 | disposition home or self-care (01) ==
LOC: ED 17:45
DX: B34.9 Viral infection, unspecified (principal); N28.9 Disorder of kidney and ureter, unspecified; F17.200 Nicotine dependence, unspecified, uncomplicated
CPT/HCPCS: 71046; 80053; 81001; 83690; 85025; 87502; 96374; 96375; 99284-25; J1170; J1885; J2405; J7030